=== PATIENT | male | born 1965 | race Caucasian/White ===

== ENCOUNTER → 2019-06-18 | Outpatient (CLI) | payer BC ==
[2019-06-18 09:03] LABS: HCT 47.3 % (39.0-53.0); HGB 15.9 gm/dL (13.0-17.5); MCH 30.9 pg (25.0-35.0); MCHC 33.6 g/dL (31.0-37.0); MCV 92.1 fL (80.0-100.0); Mean Platelet Volume 7.4; Platelet Count 258 k/uL (150-450); RBC 5.13 m/uL (4.30-5.90); RDW 12.6 % (11.5-15.5); WBC 9.5 k/uL (3.8-10.6)
[2019-06-18 09:12] LABS: Appearance,Urine Clear (Clear); Bilirubin,Urine Negative (Negative); Blood,Urine Negative (Negative); Color,Urine Light Yellow; Glucose,Urine (UA) Negative (Negative); Ketones,Urine Negative (Negative); Leukocyte Esterase,Urine Negative (Negative); Nitrite,Urine Negative (Negative); PH, Urine 6.5 (5.0-8.0); Protein,Urine Negative (Negative); Urobilinogen,Urine <2.0 mg/dL (<2.0)
[2019-06-18 09:32] LABS: ALT 46 U/L (4-49); AST 30 U/L (17-59); African American GFR (CKD) >90 (>60 ml/min/1.73 sqM); Albumin 4.4 g/dL (3.5-5.0); Alkaline Phosphatase 89 U/L (38-126); Anion Gap 10 mmol/L; Blood Urea Nitrogen 12 mg/dL (9-20); Calcium 9.8 mg/dL (8.4-10.2); Carbon Dioxide 30 mmol/L (22-30); Chloride 101 mmol/L (98-107); Glucose 101 mg/dL (74-99); Non-African American GFR(CKD) >90 (>60 ml/min/1.73 sqM); Potassium 4.3 mmol/L (3.5-5.1); Sodium 141 mmol/L (137-145); Total Bilirubin 1.1 mg/dL (0.2-1.3); Total Protein 7.5 g/dL (6.3-8.2)
[2019-06-18 09:33] LABS: Partial Thromboplastin Time 23.4 sec (22.0-30.0); Prothrombin Time 10.5 sec (9.0-12.0)
== END | disposition home or self-care (01) ==
LOC: LABPAT 08:19
PROVIDERS: ATTEND Orthopaedic Surgery
DX: Z01.810 Encounter for preprocedural cardiovascular examination (principal); Z01.812 Encounter for preprocedural laboratory examination; M17.12 Unilateral primary osteoarthritis, left knee
CPT/HCPCS: 36415; 80053; 81003; 85027; 85610; 85730; 87070; 93005

== ENCOUNTER 2019-06-23 11:03 | Inpatient (IN) | payer BC ==
[2019-06-15 16:10] VITALS: BMI 30.5
[~2019-06-23 11:03] MED LIST: ACETAMINOPHEN TAB 500 MG TAB PO ONE; DEXAMETHASONE SOD PHOSPHATE 10 MG/ML 1 ML VIAL IV ONE; GABAPENTIN 300 MG CAP PO ONE; HYDROmorphone 0.5 MG/0.5 ML SYRINGE IVP PRN; LIDOCAINE 1% 20 ML VIAL (10MG/ML) FOR IV START INTRADERMA PRN; MELOXICAM 7.5 MG TAB PO ONE; MIDAZOLAM 2 MG/2 ML VIAL IV PRN; ONDANSETRON 4 MG/2 ML VIAL IVP ONE; ROPIVACAINE 246.25 MG, EPINEPHrine 0.5 MG, KETOROLAC 30 MG, cloNIDine HCL/PF 80 MCG, WA... MISCELLANE ONE; SCOPOLAMINE 1.5MG/72HR PATCH TRANSDERM ONE; TRANEXAMIC ACID 1,000 MG in SODIUM CHLORIDE 0.9% 100 ML IVPB ONE
[2019-06-23] MEDS ORDERED: BISACODYL 10 MG SUPP RECTAL PRN (14:42)
[2019-06-23] MEDS ORDERED: HYDROmorphone 0.5 MG/0.5 ML SYRINGE IVP PRN ×2 (14:42)
[2019-06-23] MEDS ORDERED: HYDROmorphone 1 MG/ML 1 ML SYRINGE IVP PRN (14:42)
[2019-06-23] MEDS ORDERED: hydrOXYzine PAMOATE 25 MG CAP PO PRN (14:42)
[2019-06-23] MEDS ORDERED: NALOXONE 0.4 MG/ML 1 ML VIAL IV PRN (14:42)
[2019-06-23] MEDS ORDERED: ONDANSETRON 4 MG/2 ML VIAL IVP PRN (14:42)
[2019-06-23] MEDS ORDERED: HYDROcodone/APAP 5-325MG 1 EACH TAB PO PRN ×2 (14:42)
[2019-06-23] MEDS ORDERED: DIAZEPAM 5 MG TAB PO PRN (14:42)
[2019-06-23] MEDS ORDERED: MAGNESIUM HYDROXIDE 2,400 MG/10 ML CUP PO PRN (14:42)
[2019-06-23] MEDS ORDERED: NA PHOS,M-B/NA PHOS,DI-BA 133 ML ENEMA RECTAL PRN (14:42)
[2019-06-23] MEDS: LACTATED RINGERS 1,000 ML IV SCH (15:37)
[2019-06-23] MEDS ORDERED: fentaNYL (PF) 50 MCG/ML 2 ML AMP IVP ONE (16:09)
[2019-06-23] MEDS ORDERED: MIDAZOLAM 2 MG/2 ML VIAL IVP ONE (16:09)
[2019-06-23] MEDS ORDERED: SUCCINYLCHOLINE CHLORIDE 100 MG/5 ML SYR IV ONE (16:51)
[2019-06-23] MEDS ORDERED: fentaNYL (PF) 50 MCG/ML 2 ML AMP ONE (16:51)
[2019-06-23] MEDS ORDERED: LIDOCAINE 1% INJ 10MG/ML (20 ML MDV) ONE (16:51)
[2019-06-23] MEDS ORDERED: PROPOFOL 10 MG/ML 20 ML VIAL IV ONE (16:51)
[2019-06-23] MEDS ORDERED: ROCURONIUM BROMIDE 10 MG/ML 10 ML VIAL IV ONE (16:51)
[2019-06-23] MEDS ORDERED: SODIUM CHLORIDE 0.9% 100 ML BAG ONE (16:51)
[2019-06-23] MEDS ORDERED: TRANEXAMIC ACID 1,000 MG/10 ML VIAL ONE (16:51)
[2019-06-23] MEDS ORDERED: MIDAZOLAM 2 MG/2 ML VIAL ONE (16:51)
[2019-06-23] MEDS ORDERED: ceFAZolin 3,000 MG in SODIUM CHLORIDE 0.9% IRRIGATIO 3,000 ML IRRIGATION ONE (16:54)
[2019-06-23] MEDS ORDERED: LACTATED RINGERS 1,000 ML IV ONE (17:31)
--- NOTE | 2019-06-23 17:39 | P.ANPRN ---
Procedure Note - Anesthesia - Nerve Block Performed Left Adductor Canal Infusion Time Out Performed: Yes (1608) Date of Procedure: 06/23/19 Procedure Start Time: 16:08 Procedure Stop Time: 16:15 Location of Patient: PreOp Indication: Acute Post-Operative Pain, Requested by Surgeon Specifically requested for management of pain by DrDisha: Quinn Swartz Sedation Type: Sedate with meaningful contact maintained Preparation: Sterile Prep Position: Supine Catheter Depth at Skin (cm): 10 Catheter: Indwelling Needle Types: Pajunk Needle Gauge: 20 Ultrasound used to observe medication spread: Yes Injectate: 0.5% Ropivacaine (see comment for volume) (20 cc) Blood Aspirated: No Pain Paresthesia on Injection Noted: No Resistance on Injection: Normal Image Stored and Saved: Yes Events: Uneventful and Well Tolerated
[2019-06-23] MEDS ORDERED: ROPIVACAINE 0.2%-NS ON-Q PUMP 1,090 MG, EMPTY PAIN BALL 1 EACH MISCELLANE PRN (18:30)
--- NOTE | 2019-06-23 18:34 | P.OP ---
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 He's had a prior total knee arthroplasty is initial x-ray showed polyethylene wear. He was scheduled for revision surgery but returned to the office subsequently with increased pain. His x-rays demonstrated a fracture of the posterior condyle this femoral component. After discussing the surgical nonsurgical treatment options with him at length, I recommended a revision of his total knee arthroplasty informed consent was obtained. Operative Findings: The operative findings are consistent with a fracture to the posterior condyle the femoral component and polyethylene wear. Description of Procedure: Patient was seen in the preoperative area consent was reviewed and operative site was marked with a skin marker. An adductor canal pain catheter was placed by anesthesia in the preoperative area. Patient was then brought to the operating room and given preoperative antibiotics intravenously. A spinal anesthetic was administered by the anesthesia department. A tourniquet was placed on the upper thigh and the lower extremity was prepped and draped in usual sterile fashion. A gram of transexamic acid was given. A universal timeout was then performed which confirmed the patient's name, surgical site, ALLERGIES, and consent. The lower extremity was then exsanguinated and tourniquet was inflated to 250 mmHg. A standard and anterior midline approach to the knee was performed. The skin and subcutaneous tissue was dissected down to the patellar tendon. A medial parapatellar arthrotomy was then performed. The knee was then extended, the patellar was everted, and the knee was again flexed. The knee was then cultured 2. The prosthesis was then evaluated and the tibial component was found to be stable. The polyethylene component was found have significant wear laterally and there is also fracture of the posterior condyle of the femoral component. The polyethylene component was then removed, and attention was directed to the femoral component. Using a small oscillating saw, the cement implant interface was disrupted and the femoral was then removed without difficulty. Next, sequential reaming of the femoral canal was then performed by hand. The femur was then sized and the distal cutting block was then placed in the distal femur was then freshened with a cut. Next the 4-in-1 cutting block was then placed, and set for the appropriate rotation. Anterior posterior chamfer cuts were then performed as well as anterior posterior cuts. The trial femur was then placed with appropriate length stem. Next the box cutting guide was placed in the bone for the box was then reamed and removed. Femoral trial was then removed. Trials were then placed and the knee was able to fully extend and his flexion was stable to 120. Trials were then removed. The cut surfaces of bone were then irrigated with pulsatile lavage. The posterior structures were injected with the ropivacaine solution. The knee was also irrigated with Irrisept solution. The components were then opened, the cement was mixed, and the components were then cemented in place. The cement was allowed to harden with the knee in full extension. While the cement was hardening, the remaining soft tissues were then injected with a ropivacaine solution, which consisted of 246.25 mg of ropivacaine, 0.5 mg of epinephrine, 30 mg of Toradol, 80 g of clonidine, and 48.45 mL of sterile water, for a total of 100 mL of fluid injected. After the cemented hardened. The tourniquet was released, and hemostasis was obtained. A second gram of transexamic acid was given. The knee was again irrigated. The knee was again taken through range of motion and found to be stable throughout all range of motion of 0-130, and the patella tracked normally. The fascia was then closed with #2 strata fix suture. The subcutaneous tissue was closed with 3-0 Vicryl and 3-0 strata fix. Dermabond glue was used for the skin and placed with the knee in flexion. The patient was placed in a sterile silver dressing. Patient was then transferred to recovery room in stable condition. The periodontal assistant BIANKA Adams was required due the complexity surgery and the need for a skilled surgical technology instructor. She assisted in positioning, draping, retraction, and closure of the wound.
--- NOTE | 2019-06-23 19:08 | XR ---
EXAMINATION TYPE: XR knee limited LT DATE OF EXAM: 06/23/2019 COMPARISON: 05/05/2019 HISTORY: Postop TECHNIQUE: 2 views FINDINGS: There is left knee prosthesis. Components appear in anatomic position. There is revision of the prosthesis compared to last exam. IMPRESSION: Prosthesis revision. No complicating process seen.
[2019-06-23] MEDS ORDERED: NITROGLYCERIN SL TABS 0.4 MG TAB SUBLINGUAL ONE (19:15)
[2019-06-23] MEDS ORDERED: CITRIC ACID-SODIUM CITRATE 15 ML CUP PO ONE (19:26)
[2019-06-23] MEDS ORDERED: NITROGLYCERIN OINT 1 INCH/GM PACKET TOPICAL ONE (19:36)
--- NOTE | 2019-06-23 19:55 | P.PN ---
Progress Note - Text Progress Note Date: 06/23/19 (1941) Anesthesiology PACU update upon waking after surgery, patient had complaint of just left of sternum chest pain 5/10. Oxygen, pain meds, bicitra and SL nitro. Pain resolved with sublingual nitroglycerin. EKG unchanged from previous on 06/18/2019. Cardiology consulted and contacted. Spoke directly with Dr. Saúl Mcrae. Relayed patient history and current situation. Per conversation with Clementina. Pt is to go to [address] [place] [address], consult to Cardio (Clementina), ensure statin and metoprol ol and plavix is restarted. Trops ordered. Nitropaste 1" applied.
[2019-06-23 20:29] VITALS: RESP 18
[2019-06-23] MEDS ORDERED: ATORVASTATIN 80 MG TAB PO SCH (21:00)
[2019-06-23] MEDS ORDERED: SENNOSIDES-DOCUSATE SODIUM 1 EACH TAB PO SCH (21:00)
[2019-06-23] MEDS: ASPIRIN 81 MG PO SCH (21:01)
[2019-06-23] MEDS: CLOPIDOGREL 75 MG TAB PO SCH (21:02)
[2019-06-23] MEDS: SODIUM CHLORIDE 0.9% 1,000 ML IV SCH (22:30)
[2019-06-24] MEDS: LACTATED RINGERS 1,000 ML IV SCH (01:34)
[2019-06-24] MEDS: SODIUM CHLORIDE 0.9% 1,000 ML IV SCH (05:55)
[2019-06-24 06:11] LABS: Basophils % (A) 0 %; Eosinophils % (A) 0 %; HCT 43.5 % (39.0-53.0); HGB 14.1 gm/dL (13.0-17.5); Lymphocytes # (A) 0.6 k/uL (1.0-4.8); Lymphocytes % (A) 4 %; MCHC 32.4 g/dL (31.0-37.0); MCV 92.6 fL (80.0-100.0); Mean Platelet Volume 7.7; Monocytes # (A) 0.5 k/uL (0-1.0); Monocytes % (A) 3 %; Neutrophils # (A) 12.8 k/uL (1.3-7.7); Neutrophils % (A) 92 %; Platelet Count 197 k/uL (150-450); RDW 12.9 % (11.5-15.5); WBC 13.9 k/uL (3.8-10.6)
[2019-06-24] MEDS: CLOPIDOGREL 75 MG TAB PO SCH (08:15)
[2019-06-24] MEDS: ASPIRIN 81 MG PO SCH (08:15)
--- NOTE | 2019-06-24 08:57 | P.DS ---
Providers Date of admission: 06/23/19 14:38 Expected date of discharge: 06/24/19 Attending physician: Quinn Swartz Consults: 06/23/19 14:42 Consult Physician Routine Consulting Provider: Haris Pizano Reason/Comments: medical management Do you want consulting provider notified?: Yes 06/23/19 19:35 Consult Physician Stat Consulting Provider: Saúl Mcrae Consult Reason/Comments: Angina in PACU Do you want consulting provider notified?: Already Contacted Primary care physician: Haris Pizano - Discharge Diagnosis(es) (1) Failed total knee, left Current Visit: Yes Status: Acute (2) Status post revision of total replacement of left knee Current Visit: Yes Status: Acute Hospital Course: This is a 53-year-old male who was last seen with complaint of continued left knee pain. The patient has a known history of failed total knee components of the left knee and presents to discuss surgical options. After discussion and consideration the patient elects to proceed with revision total left knee arthroplasty. The patient is seen preoperatively by Dr. Pizano and cleared for surgery. The patient is admitted to [facility] for revision total left knee arthroplasty. The procedure is performed without complication. He developed some chest pain postoperatively and was transferred to the selective care unit for observation and evaluation. He is doing well on postop day #1. Vital signs are stable at discharge. Labs are stable at discharge. the patient is ambulating well with walker with minimal assistance. The patient is discharged to home on postop day #1 pending medical and cardiac clearance. Please see orders and refer to the [facility] rec for accurate list of medications. Plan - Discharge Summary Discharge Rx Participant: No New Discharge Prescriptions: New HYDROcodone/APAP 7.5-325MG [[place] 7.5-325] 1 - 2 tab PO Q4-6H PRN #50 tab PRN Reason: Pain Sennosides-Docusate Sodium [Senokot-S] 1 tab PO BID #60 tablet No Action amLODIPine BESYLATE/BENAZEPRIL [Lotrel 10-40 MG] 1 cap PO DAILY Metoprolol Succinate [[place] Sprinkle] 25 mg PO DAILY Clopidogrel [Plavix] 75 mg PO DAILY Omeprazole [PriLOSEC] 20 mg PO AC-BRKFST Atorvastatin Calcium [Lipitor] 80 mg PO HS Aspirin [Adult Low Dose Aspirin EC] 81 mg PO DAILY Discharge Medication List Aspirin [Adult Low Dose Aspirin EC] 81 mg PO DAILY 06/15/19 [History] Atorvastatin Calcium [Lipitor] 80 mg PO HS 06/15/19 [History] Clopidogrel [Plavix] 75 mg PO DAILY 06/15/19 [History] Metoprolol Succinate [[place] Sprinkle] 25 mg PO DAILY 06/15/19 [History] Omeprazole [PriLOSEC] 20 mg PO AC-BRKFST 06/15/19 [History] amLODIPine BESYLATE/BENAZEPRIL [Lotrel 10-40 MG] 1 cap PO DAILY 06/15/19 [History] HYDROcodone/APAP 7.5-325MG [[place] 7.5-325] 1 - 2 tab PO Q4-6H PRN #50 tab 06/24/19 [Rx] Sennosides-Docusate Sodium [Senokot-S] 1 tab PO BID #60 tablet 06/24/19 [Rx] Follow up Appointment(s)/Referral(s): Quinn Swartz DO [Doctor of Osteopathic Medicine] - 2 Weeks Activity/Diet/Wound Care/Special Instructions: Weightbearing as tolerated with a walker. CPM 5-6h daily. Leave dressing intact. May be removed by home care nurse or by patient in 10 days. May shower with dressing on. Recommend use of compression stockings daily for at least 2 weeks during the day to help prevent swelling and blood clots. May remove at night before sleeping. Please follow up with [facility] and call with any questions or co nverns, . May resume Plavix. Discharge Disposition: HOME WITH HOME HEALTH SERVICES
[2019-06-24] MEDS ORDERED: CLOPIDOGREL 75 MG TAB PO SCH (09:00)
[2019-06-24] MEDS ORDERED: METOPROLOL SUCCINATE (ER) 25 MG TAB.ER.24H PO SCH (09:00)
--- NOTE | 2019-06-24 09:52 | P.CRDCN ---
History of Present Illness Consult date: 06/24/19 Requesting physician: Quinn Swartz Consult reason: chest pain Chief complaint: Chest pain History of present illness: Physical pleasant 53-year-old gentleman with history of myocardial infarction in January of last year at which time he underwent stenting of the distal RCA, history of hypertension, hyperlipidemia, patient underwent revision of left total knee arthroplasty yesterday, while in the recovery room he was experiencing some midsternal chest discomfort and for this reason he was admitted to the cardiac unit and a cardiology consultation was requested. Patient states the discomfort was right in the mid chest area, nonradiating, he denies any associated shortness of breath or diaphoresis. An EKG was performed at that time which showed a normal sinus rhythm with a right bundle branch block pattern, nonspecific ST-T wave changes. Blood pressure 116/68 with a heart rate of 90, 94% on 4 L of oxygen, he is afebrile. Troponin times one was negative. White blood cell count 13.9, hemoglobin 14.1, platelet count 197. At the time of my examination this morning, patient is currently chest pain-free. The patient had been off of his Plavix for 5 days prior to surgery, he continued aspirin, the Plavix has since been resumed, and he is also on 25 mg of metoprolol daily. Past Medical History Past Medical History: GERD/Reflux, Hyperlipidemia, Hypertension, Myocardial Infarction (ME), Osteoarthritis (OA) Last Myocardial Infarction Date:: 01/27/19 History of Any Multi-Drug Resistant Organisms: None Reported Past Surgical History: Cholecystectomy, Heart Catheterization With Stent, Joint Replacement Additional Past Surgical History / Comment(s): yadira knee replacement Past Anesthesia/Blood Transfusion Reactions: Postoperative Nausea & Vomiting (PONV) Date of Last Stent Placement:: 01/27/19 Smoking Status: Never smoker Past Alcohol Use History: Rare Additional Past Alcohol Use History / Comment(s): hx chew tobacco last used 07/22 Past Drug Use History: None Reported - Past Family History Mother Family Medical History: Cancer Father Family Medical History: Cancer Additional Family Medical History / Comment(s): stomach cancer Medications and Allergies Home Medications Medication Instructions Recorded Confirmed Type Aspirin [Adult Low Dose Aspirin EC] 81 mg PO DAILY 06/15/19 06/23/19 History Atorvastatin Calcium [Lipitor] 80 mg PO HS 06/15/19 06/23/19 History Clopidogrel [Plavix] 75 mg PO DAILY 06/15/19 06/23/19 History Metoprolol Succinate [[place] 25 mg PO DAILY 06/15/19 06/23/19 History Sprinkle] Omeprazole [PriLOSEC] 20 mg PO AC-BRKFST 06/15/19 06/23/19 History amLODIPine BESYLATE/BENAZEPRIL 1 cap PO DAILY 06/15/19 06/23/19 History [Lotrel 10-40 MG] HYDROcodone/APAP 7.5-325MG [[place] 1 - 2 tab PO Q4-6H PRN #50 tab 06/24/19 Rx 7.5-325] Sennosides-Docusate Sodium 1 tab PO BID #60 tablet 06/24/19 Rx [Senokot-S] Allergies Allergy/AdvReac Type Severity Reaction Status Date / Time No Known Allergies Allergy Verified 06/23/19 15:11 Physical Exam Vitals: Vital Signs Temp Pulse Resp BP Pulse Ox 06/24/19 08:00 97.6 F 90 18 116/69 94 L 06/24/19 05:56 93 L 06/24/19 04:50 111/72 06/24/19 04:00 97.8 F 78 18 103/71 92 L 06/24/19 02:40 88 18 06/24/19 01:11 88 18 98/52 92 L 06/24/19 00:00 85 18 95/55 92 L 06/23/19 23:42 98/58 06/23/19 21:42 102/59 06/23/19 20:22 98 F 81 18 101/58 90 L 06/23/19 19:46 83 14 95/57 94 L 06/23/19 19:32 84 16 98/56 93 L 06/23/19 19:17 85 16 104/68 93 L 06/23/19 19:04 87 16 106/66 93 L 06/23/19 18:45 83 16 107/67 97 06/23/19 18:37 97.7 F 86 18 103/63 95 06/23/19 16:15 71 18 126/84 96 06/23/19 15:23 98.2 F 66 18 127/86 99 Intake and Output 06/23/19 06/24/19 06/24/19 22:59 06:59 14:59 Intake Total 1551 480 Output Total 25 Balance 1526 480 Intake: IV 1551 Oral 480 Output: Estimated Blood Loss 25 Other: Voiding Method Urinal # Voids 1 Weight 97.7 kg 98.4 kg PHYSICAL EXAMINATION: GENERAL: 53-year-old gentleman in no acute distress at the time of my examination HEENT: Head is atraumatic, normocephalic. Pupils equal, round. Sclera anicteric. Conjunctiva are clear. Mucous membranes of the mouth are moist. Neck is supple. There is no elevated jugular venous pressure. No carotid b ruit is heard. HEART EXAMINATION: Heart S1, S2 normal. No murmur or gallop heard. CHEST EXAMINATION: Lungs are clear to auscultation and precussion. No chest wall tenderness is noted on palpation or with deep breathing. ABDOMEN: Soft, nontender. Bowel sounds are heard. No organomegaly noted. EXTREMITIES: 2+ peripheral pulses with no evidence of peripheral edema and no calf tenderness noted. NEUROLOGIC patient is awake, alert and oriented 3 . . Results 06/24/19 05:21 Cardiac Enzymes 06/23/19 Range/Units 20:30 Troponin I <0.012 (0.000-0.034) ng/mL CBC 06/24/19 Range/Units 05:21 WBC 13.9 H (3.8-10.6) k/uL RBC 4.70 (4.30-5.90) m/uL Hgb 14.1 (13.0-17.5) gm/dL Hct 43.5 (39.0-53.0) % Plt Count 197 (150-450) k/uL Current Medications Generic Name Dose Route Start Last Admin Trade Name Freq PRN Reason Stop Dose Admin Hydrocodone Bitart/Acetaminophen 1 each 06/23/19 14:42 [place] 5-325 PO Q6HR PRN Pain Scale 1 to 5 Hydrocodone Bitart/Acetaminophen 2 each 06/23/19 14:42 [place] 5-325 PO Q6HR PRN Pain Scale 6 to 10 Aspirin 81 mg 06/23/19 21:00 06/24/19 08:15 Aspirin PO 81 mg BID CHERELLE Administration Atorvastatin Calcium 80 mg 06/23/19 21:00 06/23/19 21:01 Lipitor PO 80 mg HS CHERELLE Administration Bisacodyl 10 mg 06/23/19 14:42 Dulcolax RECTAL DAILY PRN Constipation Clopidogrel Bisulfate 75 mg 06/23/19 20:15 06/24/19 08:15 Plavix PO 75 mg DAILY CHERELLE Administration Ropivacaine 1,090 mg/ Bandage/ 0 mg 06/23/19 18:30 06/23/19 18:45 Support Products 1 each MISCELLANE 1,090 mg Q2H PRN Administration Breakthrough Pain Diazepam 2.5 mg 06/23/19 14:42 Valium PO Q8HR PRN Mild Spasms Hydromorphone HCl 0.25 mg 06/23/19 14:42 Dilaudid IVP Q3HR PRN Pain Scale 1 to 3 Hydromorphone HCl 0.5 mg 06/23/19 14:42 Dilaudid IVP Q3HR PRN Pain Scale 4 to 6 Hydromorphone HCl 1 mg 06/23/19 14:42 06/23/19 23:14 Dilaudid IVP 1 mg Q3HR PRN Administration Pain Scale 7 to 10 Hydroxyzine Pamoate 25 mg 06/23/19 14:42 Vistaril PO Q4HR PRN Nausea, Anxiety, Pain Control Lactated Ringer's 1,000 mls @ 20 mls/hr 06/23/19 05:37 06/24/19 01:34 Lactated Ringers IV Not Given .Q24H CHERELLE Sodium Chloride 1,000 mls @ 70 mls/hr 06/23/19 14:45 06/24/19 05:55 Saline 0.9% IV Not Given .[id number] CHERELLE Lidocaine HCl 0.1 ml 06/23/19 05:37 06/23/19 15:38 .Xylocaine 1% Inj (10mg/Ml) For Iv Start INTRADERMA 0.1 ml PER PROTOCOL PRN Administration IV Start Magnesium Hydroxide 2,400 mg 06/23/19 14:42 Milk Of Magnesia PO DAILY PRN Constipation Metoprolol Succinate 25 mg 06/24/19 09:00 06/24/19 08:15 Toprol Xl PO 25 mg DAILY CHERELLE Administration Naloxone HCl 0.2 mg 06/23/19 14:42 Narcan IV Q2M PRN Opioid Reversal Ondansetron HCl 4 mg 06/23/19 14:42 06/23/19 19:10 Zofran IVP 4 mg Q8HR PRN Administration Nausea And Vomiting Senna/Docusate Sodium 2 each 06/23/19 21:00 06/23/19 21:01 Senokot-S PO 2 each HS CHERELLE Administration Sodium Biphosphate/Sodium Phosphate 133 ml 06/23/19 14:42 Fleet Adult RECTAL DAILY PRN Constipation Intake and Output 06/23/19 06/24/19 06/24/19 22:59 06:59 14:59 Intake Total 1551 480 Output Total 25 Balance 1526 480 Intake: IV 1551 Oral 480 Output: Estimated Blood Loss 25 Other: Voiding Method Urinal # Voids 1 Weight 97.7 kg 98.4 kg 06/24/19 05:21 EKG Interpretations (text) EKG shows normal sinus rhythm with a right bundle branch block pattern and nonspecific ST-T wave changes. Assessment and Plan Plan: Assessment and plan #1 status post revision left total knee arthroplasty #2 history of myocardial infarction in January of last year at which time patient underwent stenting of the distal RCA by Dr. Marquis at [facility] #3 hypertension #4 hyperlipidemia Plan Initial troponin was negative, we will obtain a subsequent troponin, obtain an echocardiogram with Doppler study. Repeat EKG this morning. Patient has been resumed on his Plavix, aspirin, Lipitor, and Metoprolol 25 mg daily. Further recommendations to follow. DNP note has been reviewed, I agree with a documented findings and plan of care. Patient was seen and examined.
[2019-06-24] MEDS ORDERED: METOPROLOL SUCCINATE 25 MG PO SCH (10:30)
[2019-06-24] MEDS ORDERED: PANTOPRAZOLE 40 MG TABLET PO SCH (10:30)
[2019-06-24] MEDS ORDERED: CLOPIDOGREL 75 MG TAB PO STA (10:54)
--- NOTE | 2019-06-24 11:24 | P.CONS ---
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 Plavix on hold for 5 days prior to surgery, but continued aspirin. Postop, in the recovery room, experienced nonradiating midsternal chest pain with no palpitations, shortness of breath or diaphoresis, accompanied by hypoxia, with O2 sats in the low 80s on room air. EKG performed, currently not available. Troponins negative 2. Systolic blood pressure 110's, HR 90s. Afebrile, WBC 13.9, hemoglobin 14.1, platelets 197. Currently sinus rhythm, maintaining O2 sats in the 90s on 4 L nasal cannula, denies chest pain, palpitations or shortness of breath. Denies lightheadedness, dizziness or focal deficits. Review of Systems Constitutional: Denied any fatigue denied any fever. Cardio vascular: denied any chest pain, palpitations Gastrointestinal denied any nausea vomiting Pulmonary: Denied any shortness of breath cough Neurologic denied any new focal deficits ROS Statement: Those systems with pertinent positive or pertinent negative responses have been documented in the HPI. ROS Other: All systems not noted in ROS Statement are negative. Past Medical History Past Medical History: GERD/Reflux, Hyperlipidemia, Hypertension, Myocardial Infarction ([place]), Osteoarthritis (OA) Last Myocardial Infarction Date:: 01/27/19 History of Any Multi-Drug Resistant Organisms: None Reported Past Surgical History: Cholecystectomy, Heart Catheterization With Stent, Joint Replacement Additional Past Surgical History / Comment(s): yadira knee replacement Past Anesthesia/Blood Transfusion Reactions: Postoperative Nausea & Vomiting (PONV) Date of Last Stent Placement:: 01/27/19 Smoking Status: Never smoker Past Alcohol Use History: Rare Additional Past Alcohol Use History / Comment(s): hx chew tobacco last used 07/22 Past Drug Use History: None Reported - Past Family History Mother Family Medical History: Cancer Father Family Medical History: Cancer Additional Family Medical History / Comment(s): stomach cancer Medications and Allergies Home Medications Medication Instructions Recorded Confirmed Type Aspirin [Adult Low Dose Aspirin EC] 81 mg PO DAILY 06/15/19 06/23/19 History Atorvastatin Calcium [Lipitor] 80 mg PO HS 06/15/19 06/23/19 History Clopidogrel [Plavix] 75 mg PO DAILY 06/15/19 06/23/19 History Metoprolol Succinate [Kapspargo 25 mg PO DAILY 06/15/19 06/23/19 History Sprinkle] Omeprazole [PriLOSEC] 20 mg PO AC-BRKFST 06/15/19 06/23/19 History amLODIPine BESYLATE/BENAZEPRIL 1 cap PO DAILY 06/15/19 06/23/19 History [Lotrel 10-40 MG] HYDROcodone/APAP 7.5-325MG [[place] 1 - 2 tab PO Q4-6H PRN #50 tab 06/24/19 Rx 7.5-325] Sennosides-Docusate Sodium 1 tab PO BID #60 tablet 06/24/19 Rx [Senokot-S] Allergies Allergy/AdvReac Type Severity Reaction Status Date / Time No Known Allergies Allergy Verified 06/23/19 15:11 Physical Exam Vitals: Vital Signs Temp Pulse Resp BP Pulse Ox 06/24/19 08:00 97.6 F 90 18 116/69 94 L 06/24/19 05:56 93 L 06/24/19 04:50 111/72 06/24/19 04:00 97.8 F 78 18 103/71 92 L 06/24/19 02:40 88 18 06/24/19 01:11 88 18 98/52 92 L 06/24/19 00:00 85 18 95/55 92 L 06/23/19 23:42 98/58 06/23/19 21:42 102/59 06/23/19 20:22 98 F 81 18 101/58 90 L 06/23/19 19:46 83 14 95/57 94 L 06/23/19 19:32 84 16 98/56 93 L 06/23/19 19:17 85 16 104/68 93 L 06/23/19 19:04 87 16 106/66 93 L 06/23/19 18:45 83 16 107/67 97 06/23/19 18:37 97.7 F 86 18 103/63 95 01/21/20 16:15 71 18 126/84 96 06/23/19 15:23 98.2 F 66 18 127/86 99 Intake and Output 06/23/19 06/24/19 06/24/19 22:59 06:59 14:59 Intake Total 1551 480 Output Total 25 Balance 1526 480 Intake: IV 1551 Oral 480 Output: Estimated Blood Loss 25 Other: Voiding Method Urinal Toilet Urinal # Voids 1 1 Weight 97.7 kg 98.4 kg PHYSICAL EXAM: VITAL SIGNS: As above GENERAL: Sitting up in bed, no acute distress HEENT: Conjunctivae normal. eyes normal. Oral mucosa moist NECK: No JVD. No thyroid enlargement. No LNs CARDIOVASCULAR: S1, S2 regular.. No murmur. RESPIRATION: Breath sounds diminished in the bases. No rhonchi or crackles. No bronchial breathing. ABDOMEN: Soft, nontender . No guarding. no masses palpable. No ascites, No hepatosplenomegaly.Bowel sounds heard. LEGS: Left knee surgical site dressing with minimal seepage/shadowing, minimal edema, pain pump present. Extremity warm, positive DP pulse PSYCHIATRY: Alert and oriented X3, mood and affect normal. NERVOUS SYSTEM: Cranial N 2-12 grossly normal. Moves all 4 limbs. Diffuse weakness No focal deficits. Strength and sensation grossly intact.. Skin: no rash Lymphatic system. No LN neck axilla. Results CBC & Chem 7: 06/24/19 05:21 Labs: Abnormal Lab Results - Last 24 Hours (Table) 06/24/19 Range/Units 05:21 WBC 13.9 H (3.8-10.6) k/uL Neutrophils # 12.8 H (1.3-7.7) k/uL Lymphocytes # 0.6 L (1.0-4.8) k/uL Microbiology - Last 24 Hours (Table) 06/23/19 18:00 Anaerobic Culture - Preliminary Knee - Left 06/23/19 18:00 Wound Culture - Preliminary Knee - Left 06/23/19 18:00 Wound Culture - Preliminary Knee - Left 06/23/19 18:00 Anaerobic Culture - Preliminary Knee - Left Assessment and Plan Assessment: status post revision left total knee arthroplasty secondary to failed left total knee arthroplasty for fracture of the femoral component Postoperative chest pain, echo pending. Cardiology following. Acute hypoxic respiratory failure, status post simple mask, suspect secondary to the above, anesthesia, chest x-ray pending [place] with RCA stent January 2019 Hypertension Hyperlipidemia Gastroesophageal reflux disease Osteoarthritis Prior nicotine dependence PONV Plan: Continue on current medication regime ,monitoring and symptomatic treatment. Weaning of oxygen in progress. Chest x-ray ordered-results pending. Aggressive pulmonary toileting with incentive spirometer reinforced. Home medications of beta juany, Plavix, aspirin, PPI resumed. Echo pending. Chest x-ray ordered. PT as per orthopedic surgery. The impression and plan of care has been dictated as directed. : I performed a history and examination of this patient, discussed the same with the dictator. I agree with the dictator's note ,documented as a scribe. Any additional findings or plans will be noted.
[2019-06-24 11:35] LABS: Cholesterol 117 mg/dL (<200); HDL Cholesterol 35 mg/dL (40-60); LDL Cholesterol,Calculated 73 mg/dL (0-99); Triglycerides 45 mg/dL (<150)
[2019-06-24 11:49] VITALS: BP 116/74; PULSE 83; TEMP 97.4
--- NOTE | 2019-06-24 12:58 | XR ---
EXAMINATION TYPE: XR chest 1V portable DATE OF EXAM: 06/24/2019 COMPARISON: NONE HISTORY: Hypoxic respiratory failure TECHNIQUE: Single frontal view of the chest is obtained. FINDINGS: There is no pleural effusion or pneumothorax seen. The cardiac silhouette size is within normal limits. The osseous structures are intact. There are overlying cardiac leads. Some possible subsegmental basilar atelectatic change or scarring present at the left costophrenic angle. IMPRESSION: Possible minimal scarring or basilar atelectasis, follow-up as indicated.
--- NOTE | 2019-06-24 13:13 | P.PN ---
Progress Note - Text 06/24 646am 53-year-old male status post total knee replacement. Patient has an On-Q pump for postop pain control with the solution running at 8 mL an hour with a VAS of 2 plan to continue On-Q pump infusion
[2019-06-24 16:47] LABS: Hemoglobin A1C 6.4 % (4.0-6.0)
[2019-06-24] MEDS ORDERED: ATORVASTATIN 80 MG TAB PO SCH (21:00)
--- NOTE | 2019-06-25 12:00 | ECHOF ---
Referral Reason:chest pain MEASUREMENTS -------- HEIGHT: 182.9 cm WEIGHT: 98.0 kg BP: 116/69 RVIDd: 3.1 cm (< 3.3) IVSd: 1.1 cm (0.6 - 1.1) LVIDd: 4.9 cm (3.9 - 5.3) LVPWd: 1.2 cm (0.6 - 1.1) IVSs: 1.7 cm LVIDs: 3.1 cm LVPWs: 1.4 cm LA Diam: 3.6 cm (2.7 - 3.8) LAESV Index (A-L): 23.21 ml/m Ao Diam: 3.2 cm (2.0 - 3.7) AV Cusp: 2.3 cm (1.5 - 2.6) MV EXCURSION: 16.269 mm (> 18.000) MV EF SLOPE: 122 mm/s (70 - 150) EPSS: 0.5 cm MV E Cj: 0.78 m/s MV DecT: 132 ms MV A Cj: 0.88 m/s MV E/A Ratio: 0.88 TAPSE: 25.16 mm FINDINGS -------- Sinus rhythm. This was a technically good study. The left ventricular size is normal. There is borderline concentric left ventricular hypertrophy. Overall left ventricular systolic function is normal with, an EF between 60 - 65 %. The right ventricle is normal in size. Normal LA size by volume 22+/-6 ml/m2. The right atrium is normal in size. Interatrial and interventricular septum intact. The aortic valve is trileaflet and appears structurally normal. The mitral valve is normal. The tricuspid valve appears structurally normal. There is no pulmonic regurgitation present. The aortic root size is normal. Normal inferior vena cava with normal inspiratory collapse consistent with estimated right atrial pre ssure of 5 mmHg. There is no pericardial effusion. CONCLUSIONS -------- 1. Sinus rhythm. 2. This was a technically good study. 3. The left ventricular size is normal. 4. There is borderline concentric left ventricular hypertrophy. 5. Overall left ventricular systolic function is normal with, an EF between 60 - 65 %. 6. The right ventricle is normal in size. 7. Normal LA size by volume 22+/-6 ml/m2. 8. The right atrium is normal in size. 9. Interatrial and interventricular septum intact. 10. The aortic valve is trileaflet and appears structurally normal. 11. The mitral valve is normal. 12. The tricuspid valve appears structurally normal. 13. There is no pulmonic regurgitation present. 14. The aortic root size is normal. 15. Normal inferior vena cava with normal inspiratory collapse consistent with estimated right atrial pressure of 5 mmHg. 16. There is no pericardial effusion. BANKING ASSISTANT: Rocio Hooper RDCS
--- NOTE | 2019-06-29 14:36 | CDI ---
Documentation Clarification Form Date: 06/29/19 From: Tamika Jon CCS Phone: If you have a question about this query, please contact Elaina Page, Ice Carver at [phone] between 8am and 5pm. Admit Date: 06/23/19 Discharge Date: 06/24/19 Patient Name: Greg Freire Visit Number: [id number] ATTENTION: The Clinical Documentation Specialists (CDI) and [facility] Coding Staff appreciate your assistance in clarifying documentation. Please respond to the clarification below the line at the bottom and electronically sign. The CDI & [facility] Coding staff will review the response and follow-up if needed. Please note: Queries are made part of the Legal Health Record. If you have any questions, please contact the author of this message via ITS. Dear Dr. Swartz, The diagnosis acute hypoxic respiratory failure suspect due to anesthesia was documented in the 06/24 Consult, but is not noted in subsequent documentation. History/Risk Factors: RBB, HX smoking, Hx [place], HX PTCA w/stent, HTN Clinical Indicators: breath sounds diminished in the bases Vitals: BP 98/52, RR 18, OR 88, O2 Sat 92 on 2l of oxygen Treatment: Aggressive pulmonary toileting w/ incentive spirometer, Oxygen nasal cannula 2lpm Please clarify if the acute hypoxic respiratory was Due to anesthesia Complication of surgery Treated and resolved this admission Ruled out Other, please specify Clinically unable to determine Clinically unable to determine MTDD
== END 2019-06-24 13:55 | disposition home health service (06) | DRG 466 ==
LOC: 2ORMAIN 14:38 → EDSTATUS 16:50 → 4SSUR 18:41 → 3SCARD 19:41
PROVIDERS: ADMIT Orthopaedic Surgery; ATTEND Orthopaedic Surgery
PROC: 3E0T3BZ Introduction of Anesthetic Agent into Peripheral Nerves and Plexi, Percutaneous Approach (ICD-10-PCS; 2019-06-23)
PROC: 0SRU0J9 Replacement of Left Knee Joint, Femoral Surface with Synthetic Substitute, Cemented, Open Approach (ICD-10-PCS; principal; 2019-06-23 16:50)
PROC: 0SUW09Z Supplement Left Knee Joint, Tibial Surface with Liner, Open Approach (ICD-10-PCS; principal; 2019-06-23 16:50)
PROC: 0SPU0JZ Removal of Synthetic Substitute from Left Knee Joint, Femoral Surface, Open Approach (ICD-10-PCS; principal; 2019-06-23 16:50)
PROC: 0SPD09Z Removal of Liner from Left Knee Joint, Open Approach (ICD-10-PCS; principal; 2019-06-23 16:50)
DX: T84.013A Broken internal left knee prosthesis, initial encounter (principal); J96.01 Acute respiratory failure with hypoxia; T84.093A Other mechanical complication of internal left knee prosthesis, initial encounter; I10 Essential (primary) hypertension; E78.5 Hyperlipidemia, unspecified; I45.10 Unspecified right bundle-branch block; K21.9 Gastro-esophageal reflux disease without esophagitis; M17.12 Unilateral primary osteoarthritis, left knee; R07.89 Other chest pain; R11.2 Nausea with vomiting, unspecified; T88.59XA Other complications of anesthesia, initial encounter; I25.2 Old myocardial infarction; Y79.2 Prosthetic and other implants, materials and accessory orthopedic devices associated with adverse incidents; Z79.82 Long term (current) use of aspirin; Z79.899 Other long term (current) drug therapy; Z79.02 Long term (current) use of antithrombotics/antiplatelets; Z95.5 Presence of coronary angioplasty implant and graft; Z90.49 Acquired absence of other specified parts of digestive tract; Z96.653 Presence of artificial knee joint, bilateral; Z87.891 Personal history of nicotine dependence; Z80.0 Family history of malignant neoplasm of digestive organs
CPT/HCPCS: 64448; 71045; 76942; 80061; 83036; 84484; 85025; 87070; 87075; 87205; 93005; 93306

== ENCOUNTER 2019-06-25 22:06 | Emergency (ER) | payer BC ==
--- NOTE | 2019-06-25 23:25 | ED ---
Recheck HPI - General Chief Complaint: Skin/Abscess/Foreign Body Stated Complaint: post knee surgery-open incision Time Seen by Provider: 06/25/19 22:35 Source: patient, RN notes reviewed, old records reviewed Mode of arrival: wheelchair Limitations: no limitations - History of Present Illness Initial Comments: This is a 33-year-old male here for evaluation of bleeding postop incision. Left knee pain from the knee revision, patient bent down today to pick something up and noticed some significant bleeding in his bandage of his left knee patient presents to ER with for evaluation of that knee. No significant pain no feelings of lightheadedness dizziness or weakness. Patient is on Plavix but no other blood thinners MD Complaint: wound re-check -: hour(s) Returns Today for: wound recheck Symptoms Since Prior Visit: no new symptoms (Patient did have bleeding was seems resolved) Associated Symptoms: none Treatments Prior to Arrival: dressings - Related Data Home Medications Medication Instructions Recorded Confirmed Aspirin [Adult Low Dose Aspirin EC] 81 mg PO DAILY 06/15/19 06/23/19 Atorvastatin Calcium [Lipitor] 80 mg PO HS 06/15/19 06/23/19 Clopidogrel [Plavix] 75 mg PO DAILY 06/15/19 06/23/19 Metoprolol Succinate [Kapspargo 25 mg PO DAILY 06/15/19 06/23/19 Sprinkle] Omeprazole [PriLOSEC] 20 mg PO AC-BRKFST 06/15/19 06/23/19 amLODIPine BESYLATE/BENAZEPRIL 1 cap PO DAILY 06/15/19 06/23/19 [Lotrel 10-40 MG] Previous Rx's Medication Instructions Recorded HYDROcodone/APAP 7.5-325MG [[place] 1 - 2 tab PO Q4-6H PRN #50 tab 06/24/19 7.5-325] Sennosides-Docusate Sodium 1 tab PO BID #60 tablet 06/24/19 [Senokot-S] Allergies Allergy/AdvReac Type Severity Reaction Status Date / Time No Known Allergies Allergy Verified 06/25/19 22:16 Review of Systems ROS Statement: Those systems with pertinent positive or pertinent negative responses have been documented in the HPI. ROS Other: All systems not noted in ROS Statement are negative. Past Medical History Past Medical History: GERD/Reflux, Hyperlipidemia, Hypertension, Myocardial Infarction ([place]), Osteoarthritis (OA) Last Myocardial Infarction Date:: 01/27/19 History of Any Multi-Drug Resistant Organisms: None Reported Past Surgical History: Cholecystectomy, Heart Catheterization With Stent, Joint Replacement Additional Past Surgical History / Comment(s): yadira knee replacement Past Anesthesia/Blood Transfusion Reactions: Postoperative Nausea & Vomiting (PONV) Date of Last Stent Placement:: 01/27/19 Past Psychological History: No Psychological Hx Reported Smoking Status: Never smoker Past Alcohol Use History: Rare Past Drug Use History: None Reported - Past Family History Mother Family Medical History: Cancer Father Family Medical History: Cancer Additional Family Medical History / Comment(s): stomach cancer General Exam - General Exam Comments Initial Comments: The patient is currently clean dry and intact with no active bleeding or obvious hematoma, no dehiscence Limitations: no limitations General appearance: alert, in no apparent distress Head exam: Present: atraumatic, normocephalic, normal inspection Eye exam: Present: normal appearance, PERRL, EOMI. Absent: scleral icterus, conjunctival injection, periorbital swelling ENT exam: Present: normal exam, mucous membranes moist Neck exam: Present: normal inspection. Absent: tenderness, meningismus, lymphadenopathy Respiratory exam: Present: normal lung sounds bilaterally. Absent: respiratory distress, wheezes, rales, rhonchi, stridor Cardiovascular Exam: Present: regular rate, normal rhythm, normal heart sounds. Absent: systolic murmur, diastolic murmur, rubs, gallop, clicks GI/Abdominal exam: Present: soft, normal bowel sounds. Absent: distended, tenderness, guarding, rebound, rigid Extremities exam: Present: normal inspection, full ROM, normal capillary refill. Absent: tenderness, pedal edema, joint swelling, calf tenderness Back exam: Present: normal inspection Neurological exam: Present: alert, oriented X3, CN II-XII intact Psychiatric exam: Present: normal affect, normal mood Skin exam: Present: warm, dry, intact, normal color. Absent: rash Course Vital Signs 06/25/19 06/25/19 06/26/19 22:13 22:31 00:15 Temperature 98.1 F 98.5 F 97.8 F Pulse Rate 94 81 79 Respiratory 18 17 19 Rate Blood Pressure 142/97 138/89 138/67 O2 Sat by Pulse 97 97 97 Oximetry - Reevaluation(s) Reevaluation #1: Medical records reviewed Patient's bandages redressed here in the ER to continue follow-up with orthopedic surgery as previously directed Medical Decision Making - Medical Decision Making 53 male here for evaluation of recheck when the wound evaluation of bleeding after postop knee replacement. Bleeding seems. Currently wound and bandage are changed, incision is clean dry and intact with no dehiscence. Disposition Clinical Impression: Encounter for wound re-check, Status post revision of total replacement of left knee Disposition: HOME SELF-CARE Condition: Good Instructions (If sedation given, give patient instructions): Acute Wound Care (ED) Is patient prescribed a controlled substance at d/c from ED?: No Referrals: Haris Pizano DO [Primary Care Provider] - 1-2 days
[2019-06-25] MEDS ORDERED: HYDROcodone/APAP 5-325MG 1 EACH TAB PO STA (23:30)
[2019-06-26 00:17] VITALS: BP 138/67; PULSE 79; RESP 19; TEMP 97.8
== END 2019-06-26 00:17 | disposition home or self-care (01) ==
LOC: EC 22:06
DX: Z48.01 Encounter for change or removal of surgical wound dressing (principal); I10 Essential (primary) hypertension; E78.5 Hyperlipidemia, unspecified; K21.9 Gastro-esophageal reflux disease without esophagitis; I25.2 Old myocardial infarction; M19.90 Unspecified osteoarthritis, unspecified site; Z79.82 Long term (current) use of aspirin; Z79.02 Long term (current) use of antithrombotics/antiplatelets; Z79.899 Other long term (current) drug therapy; Z96.653 Presence of artificial knee joint, bilateral; Z95.5 Presence of coronary angioplasty implant and graft
CPT/HCPCS: 99283

== ENCOUNTER → 2020-01-25 | Outpatient (CLI) | payer BC ==
--- NOTE | 2020-01-25 17:51 | US ---
EXAMINATION TYPE: US venous doppler duplex LE RT DATE OF EXAM: 01/25/2020 1:56 PM COMPARISON: NONE CLINICAL HISTORY: 54-year-old male R22.41 swelling of right lower limb. SIDE PERFORMED: Right TECHNIQUE: The lower extremity deep venous system is examined utilizing real time linear array sonog tobias with graded compression, doppler sonography and color-flow sonography. FINDINGS: VESSELS IMAGED: External Iliac Vein (EIV) Common Femoral Vein Deep Femoral Vein Greater Saphenous Vein * Femoral Vein Popliteal Vein Small Saphenous Vein * Proximal Calf Veins (* superficial vessels) Right Leg: Negative for DVT Complex, lobulated in shape, thick walled and debris-filled fluid collection visualized in right pop fossa measuring 6.1 x 2.0 x 2.9 cm IMPRESSION: 1. No evidence for DVT within the right lower extremity imaged from the groin to the upper calf. 2. Moderate-sized 6.1 cm complex Cowan's cyst.
== END | disposition home or self-care (01) ==
LOC: RADUSWWP 13:24
PROVIDERS: ATTEND Family Medicine
DX: M71.21 Synovial cyst of popliteal space [Baker], right knee (principal)

== ENCOUNTER → 2020-03-14 | Outpatient (CLI) | payer BC ==
[2020-03-14 11:08] LABS: HCT 48.7 % (39.0-53.0); HGB 16.2 gm/dL (13.0-17.5); MCHC 33.1 g/dL (31.0-37.0); MCV 93.6 fL (80.0-100.0); Mean Platelet Volume 7.1; Platelet Count 235 k/uL (150-450); RBC 5.21 m/uL (4.30-5.90); RDW 12.8 % (11.5-15.5); WBC 8.5 k/uL (3.8-10.6)
[2020-03-14 11:23] LABS: ALT 35 U/L (4-49); AST 30 U/L (17-59); African American GFR (CKD) >90 (>60 ml/min/1.73 sqM); Albumin 4.1 g/dL (3.5-5.0); Alkaline Phosphatase 73 U/L (38-126); Anion Gap 8 mmol/L; Blood Urea Nitrogen 16 mg/dL (9-20); Calcium 9.1 mg/dL (8.4-10.2); Carbon Dioxide 26 mmol/L (22-30); Chloride 105 mmol/L (98-107); Glucose 138 mg/dL (74-99); Non-African American GFR(CKD) >90 (>60 ml/min/1.73 sqM); Potassium 4.5 mmol/L (3.5-5.1); Sodium 139 mmol/L (137-145); Total Protein 6.7 g/dL (6.3-8.2)
[2020-03-14 11:33] LABS: Appearance,Urine Clear (Clear); Bilirubin,Urine Negative (Negative); Blood,Urine Negative (Negative); Color,Urine Yellow; Glucose,Urine (UA) Negative (Negative); Ketones,Urine Negative (Negative); Leukocyte Esterase,Urine Negative (Negative); Nitrite,Urine Negative (Negative); Protein,Urine Trace (Negative); Specific Gravity,Urine 1.027 (1.001-1.035)
[2020-03-14 12:03] LABS: Partial Thromboplastin Time 23.8 sec (22.0-30.0); Prothrombin Time 10.7 sec (9.0-12.0)
== END | disposition home or self-care (01) ==
LOC: LABPAT 10:27
PROVIDERS: ATTEND Orthopaedic Surgery
DX: Z01.818 Encounter for other preprocedural examination (principal); M17.11 Unilateral primary osteoarthritis, right knee; Z01.812 Encounter for preprocedural laboratory examination
CPT/HCPCS: 36415; 80053; 81003; 85027; 85610; 85730; 87070

== ENCOUNTER 2020-04-05 14:00 | Inpatient (IN) | payer BC ==
[2020-04-01 13:16] VITALS: BMI 30.5
[~2020-04-05 14:00] MED LIST changes: -DEXAMETHASONE SOD PHOSPHATE 10 MG/ML 1 ML VIAL IV ONE; +DEXAMETHASONE SOD PHOSPHATE 4 MG/ML 1 ML VIAL IV ONE; +HYDROcodone/APAP 5-325MG 1 EACH TAB PO PRN; +HYDROmorphone 1 MG/ML 1 ML SYRINGE IVP PRN; -LIDOCAINE 1% 20 ML VIAL (10MG/ML) FOR IV START INTRADERMA PRN; +MAGNESIUM HYDROXIDE 2,400 MG/10 ML CUP PO PRN; +NA PHOS,M-B/NA PHOS,DI-BA 133 ML ENEMA RECTAL PRN; +NALOXONE 0.4 MG/ML 1 ML VIAL IV PRN; +ONDANSETRON 4 MG/2 ML VIAL IVP PRN; +bisacodyL 10 MG SUPP RECTAL PRN; +diazePAM 5 MG TAB PO PRN; +hydrOXYzine pamoate 25 MG CAP PO PRN
[2020-04-05] MEDS: LACTATED RINGERS 1,000 ML IV SCH (14:27)
[2020-04-05 14:29] LABS: Glucose,Whole Blood 92 mg/dL (75-99)
[2020-04-05] MEDS ORDERED: ROPIVACAINE 0.2%-NS ON-Q PUMP 1,090 MG, EMPTY PAIN BALL 1 EACH MISCELLANE PRN (15:13)
--- NOTE | 2020-04-05 15:15 | P.ANPRN ---
Procedure Note - Anesthesia - Nerve Block Performed Right Adductor Canal Time Out Performed: Yes (14:34) Date of Procedure: 04/05/20 Procedure Start Time: :34 Procedure Stop Time: 14:49 Location of Patient: PreOp Indication: Acute Post-Operative Pain, Requested by Surgeon (Dr Quinn Swartz) Sedation Type: Sedate with meaningful contact maintained Preparation: Sterile Prep, Sterile Dressing Position: Supine Catheter: Indwelling Needle Types: Pajunk Needle Gauge: 21 Ultrasound used to visualize needle placement: Yes Ultrasound used to observe medication spread: Yes Injectate: 0.5% Ropivacaine (see comment for volume) (20cc) Blood Aspirated: No Pain Paresthesia on Injection Noted: No Resistance on Injection: Normal Image Stored and Saved: Yes Events: Uneventful and Well Tolerated
[2020-04-05] MEDS ORDERED: fentaNYL (PF) 50 MCG/ML 2 ML AMP ONE (15:40)
[2020-04-05] MEDS ORDERED: SODIUM CHLORIDE 0.9% 100 ML BAG ONE (15:40)
[2020-04-05] MEDS ORDERED: PROPOFOL 10 MG/ML 20 ML VIAL IV ONE (15:40)
[2020-04-05] MEDS ORDERED: TRANEXAMIC ACID 1,000 MG/10 ML VIAL ONE (15:40)
[2020-04-05] MEDS ORDERED: MIDAZOLAM 2 MG/2 ML VIAL ONE (15:40)
[2020-04-05] MEDS ORDERED: LACTATED RINGERS 1,000 ML IV ONE (17:10)
--- NOTE | 2020-04-05 17:10 | P.OP ---
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 and fracture of the femoral component Procedure(s) Performed: Revision right total knee arthroplasty with revision of the femoral component and tibial and patellar polyethylene Implants: Depuy Sigma femoral TC3 cemented size 4 right PFC Sigma tibial insert fixed bearing TC3 size 5, 10 mm Attune patella medialized dome, 41 mm cemented Stout Simplex P bone cement with tobramycin The articulation is metal on polyethylene Anesthesia: spinal Surgeon: Quinn Swartz Event Staff Member #1: Do Ace Estimated Blood Loss (ml): 50 Pathology: other (Cultures 2) Condition: stable Disposition: PACU Indications for Procedure: This is a 54-year-old gentleman that seen by me in the office for pain in his right knee. His x-rays demonstrate polyethylene wear as well as a fracture of the posterior condyles femoral component. He's have the same thing happened to him on his left knee. After discussing the surgical nonsurgical treatment options with her at length he wishes to proceed with revision of his right total knee arthroplasty and informed consent was obtained. Operative Findings: The operative findings are consistent with polyethylene wear and fracture the posterior condyle right femoral component Description of Procedure: Patient was seen in the preoperative area consent was reviewed and operative site was marked with a skin marker. An adductor canal pain catheter was placed by anesthesia in the preoperative area. Patient was then brought to the operating room and given preoperative antibiotics intravenously. A spinal an esthetic was administered by the anesthesia department. A tourniquet was placed on the upper thigh and the lower extremity was prepped and draped in usual sterile fashion. A gram of transexamic acid was given. A universal timeout was then performed which confirmed the patient's name, surgical site, ALLERGIES, and consent. The lower extremity was then exsanguinated and tourniquet was inflated to 250 mmHg. A standard and anterior midline approach to the knee was performed. The skin and subcutaneous tissue was dissected down to the patellar tendon, with the prior scar being excised. A medial parapatellar arthrotomy was then performed. A moderate amount of clear fluid was encountered, and this was cultured 2. The knee was then extended, the patellar was everted, and the knee was again flexed. The components were then inspected. The femoral component had a fracture through the medial posterior condyle with significant polyethylene wear and significant polyethylene wear of the patellar component as well. The tibial poly-was then removed without incident. The poly-was found have significant wear. Attention was directed to the femur. Using a small oscillating saw, the implant cement interface was disrupted, and the femoral component was easily removed with an osteotome and a mallet. There was minimal bone loss encountered. There is found to be a fracture of the posterior medial femoral condyle. Attention was redirected to the femur. The 4-in-1 cutting block was placed and the appropriate cuts were performed. Using the guide, the bone for the femoral box was cut. The bone was then removed for the box. The knee was then extended, and using an oscillating saw the patella component was then removed without difficulty. The patella was then freshened with a saw blade measured and drilled and patella trial placed. Trials were then placed with a 10 mm constrained liner. The knee was able to fully extend and flex to 115 and was stable throughout all range of motion. Trials were then removed. The cut surfaces of bone were then irrigated with pulsatile lavage. The posterior structures were injected with the ropivacaine solution. The knee was also irrigated with Irrisept solution. The components were then opened, the cement was mixed, and the components were then cemented in place. The cement was allowed to harden with the knee in full extension. While the cement was hardening, the remaining soft tissues were then injected with a ropivacaine solution, which consisted of 246.25 mg of ropivacaine, 0.5 mg of epinephrine, 30 mg of Toradol, 80 g of clonidine, and 48.45 mL of sterile water, for a total of 100 mL of fluid injected. After the cemented hardened. The tourniquet was released, and hemostasis was obtained. A second gram of transexamic acid was given. The knee was again irrigated. The knee was again taken through range of motion and found to be stable throughout all range of motion of 0-130, and the patella tracked normally. The fascia was then closed with #2 strata fix suture. The subcutaneous tissue was closed with 3-0 Vicryl and 3-0 strata fix. Dermabond glue was used for the skin and placed with the knee in flexion. The patient was placed in a sterile silver dressing. Patient was then transferred to recovery room in stable condition. The cafe assistant BIANKA Adams was required due the complexity surgery and the need for a skilled surgical services coordinator. She assisted in positioning, draping, retraction, and closure of the wound.
--- NOTE | 2020-04-05 18:25 | XR ---
EXAMINATION TYPE: XR knee limited RT DATE OF EXAM: 04/05/2020 COMPARISON: 06/23/2019 HISTORY: Postop TECHNIQUE: 2 views FINDINGS: There is no fracture nor dislocation. There is knee prosthesis in anatomic position. There is small knee joint effusion. IMPRESSION: No fracture seen. Small joint effusion. No change.
[2020-04-05 18:36] LABS: Glucose,Whole Blood 147 mg/dL (75-99)
[2020-04-05] MEDS: SODIUM CHLORIDE 0.9% 1,000 ML IV SCH (20:16)
[2020-04-05] MEDS: ASPIRIN 81 MG PO SCH (20:26)
[2020-04-05] MEDS ORDERED: SENNOSIDES-DOCUSATE SODIUM 1 EACH TAB PO SCH (21:00)
[2020-04-06] MEDS ORDERED: TAMSULOSIN 0.4 MG CAP.ER.24H PO STA (01:03)
--- NOTE | 2020-04-06 06:20 | P.PN ---
Progress Note - Text The patient is status post right adductor canal catheter placement. The catheter was placed for postoperative pain control, status post total right arthroplasty. Ropivacaine 0.2% is infusing at 8 mLs per hour. The patient has no complaints of right lower extremity numbness or weakness. Patient's VAS score is 1 -10. Assessment: Patient's adductor canal catheter is in place and working appropriately. Plan: continue infusion and adjust it as needed.
[2020-04-06 06:37] LABS: Basophils % (A) 0 %; Eosinophils # (A) 0.1 k/uL (0-0.7); Eosinophils % (A) 1 %; HCT 44.4 % (39.0-53.0); HGB 14.3 gm/dL (13.0-17.5); Lymphocytes # (A) 0.7 k/uL (1.0-4.8); Lymphocytes % (A) 5 %; MCH 30.6 pg (25.0-35.0); MCHC 32.3 g/dL (31.0-37.0); MCV 94.7 fL (80.0-100.0); Mean Platelet Volume 7.2; Monocytes # (A) 0.9 k/uL (0-1.0); Monocytes % (A) 5 %; Neutrophils # (A) 14.9 k/uL (1.3-7.7); Neutrophils % (A) 89 %; Platelet Count 234 k/uL (150-450); RBC 4.68 m/uL (4.30-5.90); RDW 12.7 % (11.5-15.5); WBC 16.7 k/uL (3.8-10.6)
[2020-04-06 07:00] LABS: Glucose,Whole Blood 112 mg/dL (75-99)
[2020-04-06] MEDS ORDERED: PANTOPRAZOLE 40 MG TABLET PO SCH (07:30)
[2020-04-06 07:41] VITALS: BP 129/84; PULSE 61; RESP 14
[2020-04-06] MEDS: ASPIRIN 81 MG PO SCH (08:57)
[2020-04-06] MEDS ORDERED: lisinopriL 20 MG TAB PO SCH (09:00)
[2020-04-06] MEDS ORDERED: METOPROLOL SUCCINATE (ER) 25 MG TAB.ER.24H PO SCH (09:00)
[2020-04-06] MEDS ORDERED: metFORMIN 500 MG TAB PO SCH (09:00)
[2020-04-06] MEDS ORDERED: MELOXICAM 7.5 MG TAB PO SCH (09:00)
[2020-04-06] MEDS ORDERED: amLODIPine 10 MG TAB PO SCH (09:00)
[2020-04-06] MEDS ORDERED: CLOPIDOGREL 75 MG TAB PO SCH (09:00)
--- NOTE | 2020-04-06 09:04 | P.DS ---
Providers Date of admission: 04/05/20 17:58 Expected date of discharge: 04/06/20 Attending physician: Quinn Swartz Consults: 04/05/20 12:47 Consult Physician Routine Consulting Provider: Haris Pizano Consult Reason/Comments: medical management and anticoagulation Do you want consulting provider notified?: Yes Primary care physician: Haris Pizano - Discharge Diagnosis(es) (1) Failed total knee, right Current Visit: Yes Status: Acute (2) Status post revision of total replacement of right knee Current Visit: Yes Status: Acute Hospital Course: This is a 54-year-old male who underwent previous right total knee arthroplasty and developed fracture of the femoral component and polyethylene wear. The patient presented for evaluation as an outpatient. After discussion and consideration patient elects to proceed with revision right total knee arthroplasty. The patient is seen preoperatively by Dr. Swartz and medically cleared for surgery by their primary care physician. Patient is admitted to [facility] on 04/05/2020 for revision right total knee arthroplasty with revision of the femoral component and tibial and patellar polyethylene. The procedure is performed without complication or sequelae. The patient is doing well postoperatively. Labs and vital signs are stable on day of discharge. On day of discharge patient's knee incision is healing well. There is minimal erythema. There is minimal drainage noted at this time. There is minimal soft tissue swelling to the knee. Patient has full foot and ankle motion without difficulty or pain. Calf is soft and nontender to palpation. Neurovascular status to the right lower extremity is intact. Patient is discharged home in good condition. Opioid start talking form is reviewed and signed. Please see med rec for accurate list of home medications. Plan - Discharge Summary Discharge Rx Participant: No New Discharge Prescriptions: New HYDROcodone/APAP 5-325MG [[place] 5-325] 1 - 2 tab PO Q6HR PRN #48 tab PRN Reason: Pain Sennosides [Senokot] 2 tab PO DAILY PRN #60 tablet PRN Reason: Constipation Aspirin [Adult Low Dose Aspirin EC] 81 mg PO BID 30 Days #[address] tablet.[address] Delatorre Action amLODIPine BESYLATE/BENAZEPRIL [Lotrel 10-40 MG] 1 cap PO QAM Clopidogrel [Plavix] 75 mg PO DAILY Omeprazole [PriLOSEC] 20 mg PO AC-BRKFST Atorvastatin Calcium [Lipitor] 80 mg PO HS Aspirin [Adult Low Dose Aspirin EC] 81 mg PO HS Metoprolol Succinate (ER) [Toprol Xl] 25 mg PO QAM metFORMIN HCL [Glucophage] 500 mg PO QAM Tamsulosin HCl [Flomax] 0.4 mg PO HS Ezetimibe [Zetia] 10 mg PO HS Discharge Medication List Aspirin [Adult Low Dose Aspirin EC] 81 mg PO HS 06/15/19 [History] Atorvastatin Calcium [Lipitor] 80 mg PO HS 06/15/19 [History] Clopidogrel [Plavix] 75 mg PO DAILY 06/15/19 [History] Omeprazole [PriLOSEC] 20 mg PO AC-BRKFST 06/15/19 [History] amLODIPine BESYLATE/BENAZEPRIL [Lotrel 10-40 MG] 1 cap PO QAM 06/15/19 [History] Ezetimibe [Zetia] 10 mg PO HS 04/01/20 [History] Metoprolol Succinate (ER) [Toprol Xl] 25 mg PO QAM 04/01/20 [History] Tamsulosin HCl [Flomax] 0.4 mg PO HS 04/01/20 [History] metFORMIN HCL [Glucophage] 500 mg PO QAM 04/01/20 [History] Aspirin [Adult Low Dose Aspirin EC] 81 mg PO BID 30 Days #60 tablet. 04/06/20 [Rx] HYDROcodone/APAP 5-325MG [[place] 5-325] 1 - 2 tab PO Q6HR PRN #48 tab 04/06/20 [Rx] Sennosides [Senokot] 2 tab PO DAILY PRN #60 tablet 04/06/20 [Rx] Follow up Appointment(s)/Referral(s): Quinn Swartz DO [Doctor of Osteopathic Medicine] - 1 Week Activity/Diet/Wound Care/Special Instructions: Weightbearing as tolerated with a walker. CPM 5-6h daily. Leave dressing intact. May be removed by home care nurse or by patient in 10 days. May shower with dressing on. Recommend use of compression stockings daily until follow up to help prevent swelling and blood clots. May remove at night before sleeping. Please resume Plavix and take aspirin 81 mg twice daily for 30 days to help prevent blood clots. Please follow up with [facility] and call with any questions or concerns, . Discharge Disposition: HOME WITH HOME HEALTH SERVICES
[2020-04-06 09:09] VITALS: TEMP 97.8
[2020-04-06] MEDS: SODIUM CHLORIDE 0.9% 1,000 ML IV SCH (11:17)
[2020-04-06] MEDS: LACTATED RINGERS 1,000 ML IV SCH (11:18)
[2020-04-06] MEDS ORDERED: TAMSULOSIN 0.4 MG CAP.ER.24H PO SCH (21:00)
[2020-04-06] MEDS ORDERED: ATORVASTATIN 80 MG TAB PO SCH (21:00)
[2020-04-06] MEDS ORDERED: NON FORMULARY DRUG (Aspirin [Adult Low Dose Aspirin Ec] 81 MG Tablet.Dr) PO SCH (21:00)
[2020-04-06] MEDS ORDERED: EZETIMIBE 10 MG TAB PO SCH (21:00)
--- NOTE | 2020-04-06 21:59 | P.CONS ---
History of Present Illness - Reason for Consult Consult date: 04/06/20 - History of Present Illness This a pleasant 54-year-old white male who was admitted to the hospital for elective total right knee arthroplasty currently postop and doing well with minimum discomfort. I was asked to consult participate regarding this patient. He had some urinary retention last evening which was resolved by straight catheterization and Flomax. He is doing well today voiding without problems he's tolerating food well. Doing his therapy without incident. If he continues to well discharged later today. Review of Systems GENERAL: Patient denies fever. Denies chills. EYES: Denies blurred vision. Denies vision changes. Denies eye pain. EARS, NOSE, MOUTH, & THROAT: Denies headache. Denies sore throat. Denies ear pain. RESPIRATORY: Denies cough. Denies shortness of breath. Denies sputum production. Denies hemoptysis. CARDIOVASCULAR: Denies chest pain or pressure. Denies palpitations. Denies arrhythmias. GASTROINTESTINAL: Denies abdominal pain. Denies diarrhea. Denies constipation. Denies nausea. Denies vomiting. Denies heartburn. Denies blood in the stool. GENITOURINARY: Admits to resolved urinary retention last evening Denies cloudy urine. Denies blood in the urine. MUSCULOSKELETAL: Admits pain and swelling at the incision site. Right knee INTEGUMENTARY: Denies pruitis. Denies rash. PSYCHIATRIC: Denies suicidal or homicial ideations. ENDOCRINE: Denies weight change. Denies polydipsia. Denies polyuria. HEMATOLOGIC: Denies bleeding disorders. Past Medical History Past Medical History: Diabetes Mellitus, GERD/Reflux, Hyperlipidemia, Hypertension, Myocardial Infarction ([place]), Osteoarthritis (OA), Prostate Disorder Additional Past Medical History / Comment(s): BPH,PreDiabetes Last Myocardial Infarction Date:: 01/27/19 History of Any Multi-Drug Resistant Organisms: None Reported Past Surgical History: Cholecystectomy, Heart Catheterization With Stent, Joint Replacement Additional Past Surgical History / Comment(s): yadira knee replacement Past Anesthesia/Blood Transfusion Reactions: Postoperative Nausea & Vomiting (PONV) Additional Past Anesthesia/Blood Transfusion Reaction / Comm: no hx blood transfusion Date of Last Stent Placement:: 01/27/19 Past Psychological History: No Psychological Hx Reported Smoking Status: Never smoker Past Alcohol Use History: Rare Additional Past Alcohol Use History / Comment(s): hx chew tobacco last used 07/22 Past Drug Use History: None Reported - Past Family History Mother Family Medical History: Cancer Father Family Medical History: Cancer Additional Family Medical History / Comment(s): stomach cancer Medications and Allergies Home Medications Medication Instructions Recorded Confirmed Type Aspirin [Adult Low Dose Aspirin EC] 81 mg PO HS 06/15/19 04/05/20 History Atorvastatin Calcium [Lipitor] 80 mg PO HS 06/15/19 04/05/20 History Clopidogrel [Plavix] 75 mg PO DAILY 06/15/19 04/05/20 History Omeprazole [PriLOSEC] 20 mg PO AC-BRKFST 06/15/19 04/05/20 History amLODIPine BESYLATE/BENAZEPRIL 1 cap PO QA 06/15/19 04/05/20 History [Lotrel 10-40 MG] Ezetimibe [Zetia] 10 mg PO HS 04/01/20 04/05/20 History Metoprolol Succinate (ER) [Toprol 25 mg PO QA 04/01/20 04/05/20 History Xl] Tamsulosin HCl [Flomax] 0.4 mg PO HS 04/01/20 04/05/20 History metFORMIN HCL [Glucophage] 500 mg PO QA 04/01/20 04/05/20 History Aspirin [Adult Low Dose Aspirin EC] 81 mg PO BID 30 Days #60 tablet. 04/06/20 Rx HYDROcodone/APAP 5-325MG [[place] 1 - 2 tab PO Q6HR PRN #48 tab 04/06/20 Rx 5-325] Sennosides [Senokot] 2 tab PO DAILY PRN #60 tablet 04/06/20 Rx Allergies Allergy/AdvReac Type Severity Reaction Status Date / Time No Known Allergies Allergy Verified 04/01/20 13:07 Physical Exam Osteopathic Statement: *. No significant issues noted on an osteopathic structural exam other than those noted in the History and Physical/Consult. Vitals: Vital Signs Temp Pulse Resp BP Pulse Ox 04/06/20 09:00 97.8 F 04/06/20 07:40 97.5 F L 61 14 129/84 97 04/06/20 01:50 97.9 F 70 110/68 92 L 04/05/20 21:43 75 114/73 Intake and Output 04/06/20 04/06/2004/06/20 06:59 14:59 22:59 Output Total 650 500 Balance -650 -500 Output: Urine 650 500 Straight 650 GENERAL: This is a -54 year-old in no apparent distress at the time of examination. Pleasant and cooperative. HEENT: Head is atraumatic, normocephalic. Pupils are equal, round, and reactive to light. Sclerae anicteric. Conjunctivae are clear. Mucus membranes of the mouth are moist. Neck is supple. RESPIRATORY: Clear to auscultation. No wheezes, rales, or rhonchi. No use of accessory muscles. Patient maintaining oxygen saturation greater than 92%. No chest wall tenderness is noted on palpation or with deep breathing. CARDIOVASCULAR: Regular rate and rhythm. S1 and S2 noted. No systolic or diastolic murmur auscultated. No JVD noted. No S3 or S4 noted. GASTROINTESTINAL: No distention noted. Abdomen soft and round. Normal active bowel sounds auscultated x 4 quadrants. No pain or tenderness noted upon palpation. INTEGUMENTARY: No cyanosis. No jaundice. No rashes noted. No cellulitis noted. EXTREMITIES: 2+ peripheral pulses. No evidence of peripheral edema. No calf tenderness noted. NEUROLOGIC: Cranial nerves II-XII intact. PSYCHIATRIC: Awake, alert, and oriented X 3. Appropriate affect. Intact judgement and insight. Results CBC & Chem 7: 04/06/20 06:20 Labs: Abnormal Lab Results - Last 24 Hours (Table) 04/06/20 04/06/20 Range/Units 06:20 06:59 WBC 16.7 H (3.8-10.6) k/uL Neutrophils # 14.9 H (1.3-7.7) k/uL Lymphocytes # 0.7 L (1.0-4.8) k/uL POC Glucose (mg/dL) 112 H (75-99) mg/dL Microbiology - Last 24 Hours (Table) 04/05/20 17:02 Gram Stain - Preliminary Knee - Right Wound Culture - Preliminary 04/05/20 17:01 Gram Stain - Preliminary Knee - Right Wound Culture - Preliminary 04/05/20 17:01 Anaerobic Culture - Preliminary Knee - Right 04/05/20 17:02 Anaerobic Culture - Preliminary Knee - Right Assessment and Plan (1) Loose right total knee arthroplasty Status: Acute Code(s): T84.032A - [facility] LOOSENING OF INTERNAL RIGHT KNEE PROSTHETIC JOINT, INIT SNOMED Code(s): 531460885 (2) Hypertension Status: Acute Code(s): I10 - ESSENTIAL (PRIMARY) HYPERTENSION SNOMED Cod e(s): 36651931 (3) Status post revision of total replacement of right knee Status: Acute Code(s): Z96.651 - PRESENCE OF RIGHT ARTIFICIAL KNEE JOINT SNOMED Code(s): 059523482170291 (4) Diabetes 1.5, managed as type 1 Status: Acute Code(s): E13.9 - OTHER SPECIFIED DIABETES MELLITUS WITHOUT COMPLICATIONS SNOMED Code(s): 297450144 (5) Diabetes type 2, controlled Status: Acute Code(s): E11.9 - TYPE 2 DIABETES MELLITUS WITHOUT COMPLICATIONS SNOMED Code(s): 01708635 (6) GERD (gastroesophageal reflux disease) Status: Acute Code(s): K21.9 - GASTRO-ESOPHAGEAL REFLUX DISEASE WITHOUT ESOPHAGITIS SNOMED Code(s): 701225541 (7) Acute urinary retention Status: Acute Code(s): R33.8 - OTHER RETENTION OF URINE SNOMED Code(s): 569310513 Plan: Postoperative care DVT prophylaxis pain control early ambulation and rehabilitation. in progress. Care thank you for allowing me to participate in this patient's care if I communicated assistance please contact me
== END 2020-04-06 12:15 | disposition home health service (06) | DRG 468 ==
LOC: OR 14:00 → 4SSUR 17:39 → OR 18:00
PROVIDERS: ADMIT Orthopaedic Surgery; ATTEND Orthopaedic Surgery
PROC: 0SPC0JZ Removal of Synthetic Substitute from Right Knee Joint, Open Approach (ICD-10-PCS; principal; 2020-04-05 16:40)
PROC: 0SRC0J9 Replacement of Right Knee Joint with Synthetic Substitute, Cemented, Open Approach (ICD-10-PCS; principal; 2020-04-05 16:40)
DX: T84.012A Broken internal right knee prosthesis, initial encounter (principal); T84.092A Other mechanical complication of internal right knee prosthesis, initial encounter; Y79.2 Prosthetic and other implants, materials and accessory orthopedic devices associated with adverse incidents; I25.10 Atherosclerotic heart disease of native coronary artery without angina pectoris; I10 Essential (primary) hypertension; R33.8 Other retention of urine; E78.5 Hyperlipidemia, unspecified; R26.81 Unsteadiness on feet; K21.00 Gastro-esophageal reflux disease with esophagitis, without bleeding; E13.9 Other specified diabetes mellitus without complications; N40.1 Benign prostatic hyperplasia with lower urinary tract symptoms; I25.2 Old myocardial infarction; Z96.652 Presence of left artificial knee joint; Z95.5 Presence of coronary angioplasty implant and graft; Z90.49 Acquired absence of other specified parts of digestive tract; Z79.84 Long term (current) use of oral hypoglycemic drugs; Z79.899 Other long term (current) drug therapy; Z82.49 Family history of ischemic heart disease and other diseases of the circulatory system; Z79.02 Long term (current) use of antithrombotics/antiplatelets; Z79.82 Long term (current) use of aspirin; Z80.0 Family history of malignant neoplasm of digestive organs; Z98.890 Other specified postprocedural states
CPT/HCPCS: 64448; 76942; 85025; 87070; 87075; 87205

== ENCOUNTER 2020-05-24 15:39 | Emergency (ER) | payer BC ==
[2020-05-24 15:52] VITALS: RESP 18
[2020-05-24] MEDS ORDERED: ACETAMINOPHEN TAB 500 MG TAB PO STA (16:09)
[2020-05-24] MEDS ORDERED: SODIUM CHLORIDE 0.9% 1,000 ML IV STA (16:09)
--- NOTE | 2020-05-24 16:13 | ED ---
General Adult HPI - General Chief complaint: Fever Stated complaint: Fever/SOB/High HR/Low BP Time Seen by Provider: 05/24/20 16:00 Source: patient, RN notes reviewed Mode of arrival: ambulatory Limitations: no limitations - History of Present Illness Initial comments: 54-year-old male with a past medical history of hyperlipidemia, hypertension, GERD presents to the emergency room for a chief complaint of fever. Patient has had a fever for 4-5 days. States today his temperature was up to 103. He has been alternating Motrin and Tylenol. He did take Motrin 800 prior to arrival. Patient states that the day before this started he did have a boil on his scrotum that was draining. He was started on Bactrim by Dr. Pizano at that time. She reports that that has completely resolved. He denies any abdominal pain. Otherwise he has not had any other symptoms. No cough congestion. Slight shortness of breath only when his chills are severe. He tested negative for Covid 4 days ago. He reports that today he was talking to his daughter who is a nurse. His blood pressure was 98 systolic and his heart rate was in the 120s and she became concerned with his fever. Recommended he come to the emergency room.of note patient did have a right knee replacement about a month and a half ago. he has not had any increased pain swelling or redness in the knee. Patient has no other complaints at this time including chest pain, abdominal pain, nausea or vomiting, headache, or visual changes. - Related Data Home Medications Medication Instructions Recorded Confirmed Atorvastatin Calcium [Lipitor] 80 mg PO HS 06/15/19 05/24/20 Omeprazole [PriLOSEC] 20 mg PO AC-BRKFST 06/15/19 05/24/20 amLODIPine BESYLATE/BENAZEPRIL 1 cap PO QAM 06/15/19 05/24/20 [Lotrel 10-40 MG] Ezetimibe [Zetia] 10 mg PO HS 04/01/20 05/24/20 Metoprolol Succinate (ER) [Toprol 25 mg PO QAM 04/01/20 05/24/20 Xl] Tamsulosin HCl [Flomax] 0.4 mg PO HS 04/01/20 05/24/20 metFORMIN HCL [Glucophage] 500 mg PO QAM 04/01/20 05/24/20 Acetaminophen [Tylenol Arthritis] 1,300 mg PO Q4H PRN 05/24/20 05/24/20 Ibuprofen [Motrin] 800 mg PO Q8H PRN 05/24/20 05/24/20 Sulfamethoxazole/Trimethoprim 1 tab PO Q12H 05/24/20 05/24/20 [Bactrim DS 800-160 mg] Previous Rx's Medication Instructions Recorded Aspirin [Adult Low Dose Aspirin EC] 81 mg PO BID 30 Days #60 tablet. 04/06/20 Allergies Allergy/AdvReac Type Severity Reaction Status Date / Time No Known Allergies Allergy Verified 05/24/20 17:18 Review of Systems ROS Statement: Those systems with pertinent positive or pertinent negative responses have been documented in the HPI. ROS Other: All systems not noted in ROS Statement are negative. Past Medical History Past Medical History: GERD/Reflux, Hyperlipidemia, Hypertension, Myocardial Infarction ([place]), Osteoarthritis (OA) Additional Past Medical History / Comment(s): BPH,PreDiabetes Last Myocardial Infarction Date:: 01/27/19 History of Any Multi-Drug Resistant Organisms: None Reported Past Surgical History: Cholecystectomy, Heart Catheterization With Stent, Joint Replacement Additional Past Surgical History / Comment(s): yadira knee replacement Past Anesthesia/Blood Transfusion Reactions: Postoperative Nausea & Vomiting (PONV) Additional Past Anesthesia/Blood Transfusion Reaction / Comment(s): no hx blood transfusion Date of Last Stent Placement:: 01/27/19 Past Psychological History: No Psychological Hx Reported Smoking Status: Never smoker Past Alcohol Use History: Rare Past Drug Use History: None Reported - Past Family History Mother Family Medical History: Cancer Father Family Medical History: Cancer Additional Family Medical History / Comment(s): stomach cancer General Exam Limitations: no limitations General appearance: alert, in no apparent distress Head exam: Present: atraumatic, normocephalic, normal inspection Eye exam: Present: normal appearance, PERRL, EOMI. Absent: scleral icterus, conjunctival injection, periorbital swelling ENT exam: Present: normal exam, normal oropharynx, mucous membranes moist, TM's normal bilaterally, normal external ear exam Neck exam: Present: normal inspection, full ROM. Absent: tenderness, meningismus, lymphadenopathy Respiratory exam: Present: normal lung sounds bilaterally. Absent: respiratory distress, wheezes, rales, rhonchi, stridor Cardiovascular Exam: Present: tachycardia, normal heart sounds. Absent: systolic murmur, diastolic murmur, rubs, gallop, clicks GI/Abdominal exam: Present: soft, normal bowel sounds. Absent: distended, tenderness, guarding, rebound, rigid exam: Present: normal inspection (No evidence of infection, abscess has resolved. Philomena KINCAID present for exam). Absent: testicular tenderness, urethral discharge, scrotal swelling, vertical testicular lie, circumcision Extremities exam: Present: full ROM (Full range of motion of the right knee.), other (No erythema edema or increased warmth noted of the right knee. No evidence of infection.) Neurological exam: Present: alert Course Vital Signs 05/24/20 05/24/20 05/24/20 15:46 15:53 16:08 Temperature 99 F 100.3 F H Pulse Rate 120 H 113 H Respiratory 18 Rate Blood Pressure 104/69 O2 Sat by Pulse 96 Oximetry 05/24/20 17:29 Temperature Pulse Rate 90 Respiratory 18 Rate Blood Pressure 115/72 O2 Sat by Pulse 96 Oximetry EKG Findings - EKG Comments: EKG Findings:: Normal sinus rhythm, ventricular rate 97, AR interval 124, QTc 457, no evidence of ST elevation or depression. This was compared to previous EKG from June 2019 and does appear similar with right bundle branch block. Medical Decision Making - Medical Decision Making Vitals are stable. Patient initially tachycardic reflexive a fever of 100.3. He was given Tylenol and vitals normalized. His daughter was also concerned about a borderline blood pressure. Patient was dehydrated and this did improve after fluids. He did not have a low blood pressure in the emergency room. Physical exam unremarkable. No abdominal tenderness. No tonsillar exudates, uvula midline. Lungs are clear. CBC CMP unremarkable. There is evidence of dehydration with increased creatinine of 1.28. Urinalysis unremarkable. Influenza and COVID are negative. Heterophile is positive. This is likely the cause of patient's fever. No upper abdominal pain. No evidence of pharyngitis on exam. At this time vitals have remained table. Patient is well-appearing, nontoxic. He will be discharged home with diagnoses of viral syndrome. If he has worsening symptoms she will return here to the emergency room. I discussed this case with attending Dr. Bailon who agrees with this assessment and treatment plan. - Lab Data Result diagrams: 05/24/20 16:22 05/24/20 16:22 Lab Results 05/24/20 05/24/20 05/24/20 Range/Units 16:22 16:22 16:22 WBC 7.0 (3.8-10.6) k/uL RBC 5.21 (4.30-5.90) m/uL Hgb 15.7 (13.0-17.5) gm/dL Hct 46.8 (39.0-53.0) % MCV 89.8 (80.0-100.0) fL MCH 30.1 (25.0-35.0) pg MCHC 33.6 (31.0-37.0) g/dL RDW 13.2 (11.5-15.5) % Plt Count 193 (150-450) k/uL MPV 7.4 Neutrophils % 85 % Lymphocytes % 4 % Monocytes % 5 % Eosinophils % 1 % Basophils % 2 % Neutrophils # 6.0 (1.3-7.7) k/uL Lymphocytes # 0.3 L (1.0-4.8) k/uL Monocytes # 0.4 (0-1.0) k/uL Eosinophils # 0.1 (0-0.7) k/uL Basophils # 0.1 (0-0.2) k/uL Sodium (137-145) mmol/L Potassium (3.5-5.1) mmol/L Chloride (98-107) mmol/L Carbon Dioxide (22-30) mmol/L Anion Gap mmol/L BUN (9-20) mg/dL Creatinine (0.66-1.25) mg/dL Est GFR (CKD-EPI)AfAm (>60 ml/min/1.73 sqM) Est GFR (CKD-EPI)NonAf (>60 ml/min/1.73 sqM) Glucose (74-99) mg/dL Plasma Lactic Acid Miguel A (0.7-2.0) mmol/L Calcium (8.4-10.2) mg/dL Total Bilirubin (0.2-1.3) mg/dL AST (17-59) U/L ALT (4-49) U/L Alkaline Phosphatase (38-126) U/L Total Protein (6.3-8.2) g/dL Albumin (3.5-5.0) g/dL Urine Color Yellow Urine Appearance Cloudy (Clear) Urine pH 6.0 (5.0-8.0) Ur Specific [place] 1.030 (1.001-1.035) Urine Protein 1+ H (Negative) Urine Glucose (UA) Negative (Negative) Urine Ketones Negative (Negative) Urine Blood Negative (Negative) Urine Nitrite Negative (Negative) Urine Bilirubin 1+ H (Negative) Urine Urobilinogen 2.0 (<2.0) mg/dL Ur Leukocyte Esterase Negative (Negative) Urine RBC 1 (0-5) /hpf Urine WBC 6 H (0-5) /hpf Ur Squamous Epith Cells <1 (0-4) /hpf Hyaline Casts 11 H (0-2) /lpf Urine Mucus Many H (None) /hpf Coronavirus (PCR) (Not Detectd) Heterophile Antibody Positive (Negative) Influenza Type A RNA (Not Detectd) Influenza Type B (PCR) (Not Detectd) 05/24/20 05/24/20 05/24/20 Range/Units 16:22 16:22 16:22 WBC (3.8-10.6) k/uL RBC (4.30-5.90) m/uL Hgb (13.0-17.5) gm/dL Hct (39.0-53.0) % MCV (80.0-100.0) fL MCH (25.0-35.0) pg MCHC (31.0-37.0) g/dL RDW (11.5-15.5) % Plt Count (150-450) k/uL MPV Neutrophils % % Lymphocytes % % Monocytes % % Eosinophils % % Basophils % % Neutrophils # (1.3-7.7) k/uL Lymphocytes # (1.0-4.8) k/uL Monocytes # (0-1.0) k/uL Eosinophils # (0-0.7) k/uL Basophils # (0-0.2) k/uL Sodium 137 (137-145) mmol/L Potassium 4.6 (3.5-5.1) mmol/L Chloride 105 (98-107) mmol/L Carbon Dioxide 23 (22-30) mmol/L Anion Gap 9 mmol/L BUN 18 (9-20) mg/dL Creatinine 1.28 H (0.66-1.25) mg/dL Est GFR (CKD-EPI)AfAm 73 (>60 ml/min/1.73 sqM) Est GFR (CKD-EPI)NonAf 63 (>60 ml/min/1.73 sqM) Glucose 118 H (74-99) mg/dL Plasma Lactic Acid Miguel A 1.4 (0.7-2.0) mmol/L Calcium 9.4 (8.4-10.2) mg/dL Total Bilirubin 1.0 (0.2-1.3) mg/dL AST 47 (17-59) U/L ALT 60 H (4-49) U/L Alkaline Phosphatase 76 (38-126) U/L Total Protein 7.0 (6.3-8.2) g/dL Albumin 4.0 (3.5-5.0) g/dL Urine Color Urine Appearance (Clear) Urine pH (5.0-8.0) Ur Specific [place] (1.001-1.035) Urine Protein (Negative) Urine Glucose (UA) (Negative) Urine Ketones (Negative) Urine Blood (Negative) Urine Nitrite (Negative) Urine Bilirubin (Negative) Urine Urobilinogen (<2.0) mg/dL Ur Leukocyte Esterase (Negative) Urine RBC (0-5) /hpf Urine WBC (0-5) /hpf Ur Squamous Epith Cells (0-4) /hpf Hyaline Casts (0-2) /lpf Urine Mucus (None) /hpf Coronavirus (PCR) (Not Detectd) Heterophile Antibody (Negative) Influenza Type A RNA Not Detected (Not Detectd) Influenza Type B (PCR) Not Detected (Not Detectd) 05/24/20 Range/Units 16:22 WBC (3.8-10.6) k/uL RBC (4.30-5.90) m/uL Hgb (13.0-17.5) gm/dL Hct (39.0-53.0) % MCV (80.0-100.0) fL MCH (25.0-35.0) pg MCHC (31.0-37.0) g/dL RDW (11.5-15.5) % Plt Count (150-450) k/uL MPV Neutrophils % % Lymphocytes % % Monocytes % % Eosinophils % % Basophils % % Neutrophils # (1.3-7.7) k/uL Lymphocytes # (1.0-4.8) k/uL Monocytes # (0-1.0) k/uL Eosinophils # (0-0.7) k/uL Basophils # (0-0.2) k/uL Sodium (137-145) mmol/L Potassium (3.5-5.1) mmol/L Chloride (98-107) mmol/L Carbon Dioxide (22-30) mmol/L Anion Gap mmol/L BUN (9-20) mg/dL Creatinine (0.66-1.25) mg/dL Est GFR (CKD-EPI)AfAm (>60 ml/min/1.73 sqM) Est GFR (CKD-EPI)NonAf (>60 ml/min/1.73 sqM) Glucose (74-99) mg/dL Plasma Lactic Acid Miguel A (0.7-2.0) mmol/L Calcium (8.4-10.2) mg/dL Total Bilirubin (0.2-1.3) mg/dL AST (17-59) U/L ALT (4-49) U/L Alkaline Phosphatase (38-126) U/L Total Protein (6.3-8.2) g/dL Albumin (3.5-5.0) g/dL Urine Color Urine Appearance (Clear) Urine pH (5.0-8.0) Ur Specific [place] (1.001-1.035) Urine Protein (Negative) Urine Glucose (UA) (Negative) Urine Ketones (Negative) Urine Blood (Negative) Urine Nitrite (Negative) Urine Bilirubin (Negative) Urine Urobilinogen (<2.0) mg/dL Ur Leukocyte Esterase (Negative) Urine RBC (0-5) /hpf Urine WBC (0-5) /hpf Ur Squamous Epith Cells (0-4) /hpf Hyaline Casts (0-2) /lpf Urine Mucus (None) /hpf Coronavirus (PCR) Not Detected (Not Detectd) Heterophile Antibody (Negative) Influenza Type A RNA (Not Detectd) Influenza Type B (PCR) (Not Detectd) Disposition Clinical Impression: Mononucleosis Disposition: HOME SELF-CARE Condition: Good Instructions (If sedation given, give patient instructions): Mononucleosis (ED), Fever in Adults (ED) Additional Instructions: Please drink plenty of fluids as you're dehydrated. Continue Motrin and Tylenol for fever. You may alternate these every 3 hours. Follow-up with primary care in 1-2 days. Return to the emergency room for any worsening symptoms. Is patient prescribed a controlled substance at d/c from ED?: No Referrals: Haris Pizano DO [Primary Care Provider] - 1-2 days Time of Disposition: 17:34
[2020-05-24 16:17] VITALS: TEMP 100.3
[2020-05-24 16:37] LABS: Basophils # (A) 0.1 k/uL (0-0.2); Basophils % (A) 2 %; Eosinophils # (A) 0.1 k/uL (0-0.7); Eosinophils % (A) 1 %; HCT 46.8 % (39.0-53.0); HGB 15.7 gm/dL (13.0-17.5); Lymphocytes # (A) 0.3 k/uL (1.0-4.8); Lymphocytes % (A) 4 %; MCH 30.1 pg (25.0-35.0); MCHC 33.6 g/dL (31.0-37.0); MCV 89.8 fL (80.0-100.0); Mean Platelet Volume 7.4; Monocytes # (A) 0.4 k/uL (0-1.0); Monocytes % (A) 5 %; Neutrophils % (A) 85 %; Platelet Count 193 k/uL (150-450); RBC 5.21 m/uL (4.30-5.90); RDW 13.2 % (11.5-15.5)
[2020-05-24 16:48] LABS: Calcium 9.4 mg/dL (8.4-10.2); Potassium 4.6 mmol/L (3.5-5.1)
[2020-05-24 16:51] LABS: Appearance,Urine Cloudy (Clear); Bilirubin,Urine 1+ (Negative); Blood,Urine Negative (Negative); Color,Urine Yellow; Glucose,Urine (UA) Negative (Negative); Hyaline Casts,Urine 11 /lpf (0-2); Ketones,Urine Negative (Negative); Leukocyte Esterase,Urine Negative (Negative); Mucus,Urine Many /hpf; Nitrite,Urine Negative (Negative); Protein,Urine 1+ (Negative); RBC,Urine 1 /hpf (0-5); Squamous Epithelial Cell,Urine <1 /hpf (0-4); WBC,Urine 6 /hpf (0-5)
--- NOTE | 2020-05-24 17:18 | XR ---
EXAMINATION TYPE: XR chest 1V portable DATE OF EXAM: 05/24/2020 COMPARISON: 06/24/2019 HISTORY: Fever TECHNIQUE: FINDINGS: Heart is normal. Lungs are clear of consolidation. There are no hilar masses. There are elenita st leads. Bony thorax is intact. IMPRESSION: No active cardiopulmonary disease. Normal heart. There is clearing of minimal pleural olman ction and atelectasis at lung base on the left side compared to old exam.
[2020-05-24 17:29] VITALS: BP 115/72; PULSE 90
== END 2020-05-24 17:58 | disposition home or self-care (01) ==
LOC: EC 15:39
DX: B27.90 Infectious mononucleosis, unspecified without complication (principal); R00.0 Tachycardia, unspecified; E86.0 Dehydration; R06.02 Shortness of breath; K21.9 Gastro-esophageal reflux disease without esophagitis; E78.5 Hyperlipidemia, unspecified; I10 Essential (primary) hypertension; I25.2 Old myocardial infarction; M19.90 Unspecified osteoarthritis, unspecified site; Z20.828 Contact with and (suspected) exposure to other viral communicable diseases; Z79.899 Other long term (current) drug therapy; Z90.49 Acquired absence of other specified parts of digestive tract; Z95.5 Presence of coronary angioplasty implant and graft; Z96.653 Presence of artificial knee joint, bilateral
CPT/HCPCS: 36415; 71045; 80053; 81001; 83605; 85025; 86308; 87040; 87502; 87635; 93005; 96360; 99284

== ENCOUNTER 2021-07-09 17:22 | Emergency (ER) | payer BC ==
[2021-07-09 17:32] VITALS: RESP 18
[2021-07-09] MEDS ORDERED: ACETAMINOPHEN TAB 500 MG TAB PO STA (17:38)
--- NOTE | 2021-07-09 17:38 | ED ---
General Adult HPI - General Chief complaint: Upper Respiratory Infection Stated complaint: sob Time Seen by Provider: 07/09/21 17:28 Source: patient, RN notes reviewed, old records reviewed Mode of arrival: EMS Limitations: no limitations - History of Present Illness Initial comments: 55-year-old male, well appearing and in no acute distress, presents to the emergency room after going to urgent care for coronavirus test. Patient states that his daughter tested positive for coronavirus. He developed cough, shortness of breath and fever on Saturday. He was at urgent care and they told him his oxygen level was 93% and to come to the emergency room. They did a send out covid swab and a chest x-ray and were concerned for pneumonia. He does have a history of hypertension. He has not been vaccinated against coronavirus. Patient denies any chest pain, nausea, vomiting or diarrhea. -: days(s) (5) Severity scale (1-10): 0 Consistency: constant Associated Symptoms: cough, fever/chills, shortness of breath - Related Data Home Medications Medication Instructions Recorded Confirmed Atorvastatin Calcium [Lipitor] 80 mg PO HS 06/15/19 05/24/20 Omeprazole [PriLOSEC] 20 mg PO AC-BRKFST 06/15/19 05/24/20 amLODIPine BESYLATE/BENAZEPRIL 1 cap PO QAM 06/15/19 05/24/20 [Lotrel 10-40 MG] Ezetimibe [Zetia] 10 mg PO HS 04/01/20 05/24/20 Metoprolol Succinate (ER) [Toprol 25 mg PO QAM 04/01/20 05/24/20 Xl] Tamsulosin HCl [Flomax] 0.4 mg PO HS 04/01/20 05/24/20 metFORMIN HCL [Glucophage] 500 mg PO QAM 04/01/20 05/24/20 Acetaminophen [Tylenol Arthritis] 1,300 mg PO Q4H PRN 05/24/20 05/24/20 Ibuprofen [Motrin] 800 mg PO Q8H PRN 05/24/20 05/24/20 Sulfamethoxazole/Trimethoprim 1 tab PO Q12H 05/24/20 05/24/20 [Bactrim DS 800-160 mg] Previous Rx's Medication Instructions Recorded Aspirin [Adult Low Dose Aspirin EC] 81 mg PO BID 30 Days #60 tablet.dr 04/06/20 Albuterol Inhaler [Ventolin Hfa 2 puff INHALATION RT-QID #8 gm 07/09/21 Inhaler] Allergies Allergy/AdvReac Type Severity Reaction Status Date / Time No Known Allergies Allergy Verified 05/24/20 17:18 Review of Systems ROS Statement: Those systems with pertinent positive or pertinent negative responses have been documented in the HPI. ROS Other: All systems not noted in ROS Statement are negative. Past Medical History Past Medical History: GERD/Reflux, Hyperlipidemia, Hypertension, Myocardial Infarction ([place]), Osteoarthritis ([place]) Additional Past Medical History / Comment(s): BPH,PreDiabetes Last Myocardial Infarction Date:: 01/27/19 History of Any Multi-Drug Resistant Organisms: None Reported Past Surgical History: Cholecystectomy, Heart Catheterization With Stent, Joint Replacement Additional Past Surgical History / Comment(s): yadira knee replacement Past Anesthesia/Blood Transfusion Reactions: Postoperative Nausea & Vomiting (PONV) Additional Past Anesthesia/Blood Transfusion Reaction / Comment(s): no hx blood transfusion Date of Last Stent Placement:: 01/27/19 Past Psychological History: No Psychological Hx Reported Smoking Status: Never smoker Past Alcohol Use History: Rare Past Drug Use History: None Reported - Past Family History Mother Family Medical History: Cancer Father Family Medical History: Cancer Additional Family Medical History / Comment(s): stomach cancer General Exam Limitations: no limitations General appearance: alert, in no apparent distress Head exam: Present: atraumatic, normocephalic, normal inspection Eye exam: Present: normal appearance, EOMI. Absent: scleral icterus, conjunctival injection ENT exam: Present: normal exam, normal oropharynx, mucous membranes moist Neck exam: Present: normal inspection, full ROM. Absent: tenderness, meningismus, lymphadenopathy, thyromegaly Respiratory exam: Present: normal lung sounds bilaterally. Absent: respiratory distress, wheezes, rales, rhonchi, stridor, chest wall tenderness, accessory muscle use Cardiovascular Exam: Present: regular rate, normal heart sounds Back exam: Present: normal inspection, full ROM. Absent: tenderness, CVA tenderness (R), CVA tenderness (L), rash noted Neurological exam: Present: alert, oriented X3, normal gait Psychiatric exam: Present: normal affect, normal mood Skin exam: Present: warm, dry, normal color. Absent: cyanosis, diaphoretic, petechiae, pallor Course Vital Signs 07/09/21 07/09/21 07/09/21 17:25 18:11 20:32 Temperature 100.7 F H 98.1 F Pulse Rate 79 Respiratory 18 18 Rate Blood Pressure 165/113 147/98 147/98 O2 Sat by Pulse 93 L 93 L Oximetry 07/09/21 21:41 Temperature 97.9 F Pulse Rate 77 Respiratory 18 Rate Blood Pressure 135/99 O2 Sat by Pulse 93 L Oximetry Medical Decision Making - Medical Decision Making 55-year-old male presents with cough, shortness of breath and fever since Saturday. His daughter and are both positive for coronavirus. He does have a history of hypertension. Patient is in no acute distress. His oxygen saturation in the emergency room is 93% on room air. His coronavirus swab in the emergency room was positive. He has not been vaccinated against coronavirus therefore meets criteria for monoclonal antibodies. Patient is agreeable to receiving the antibodies. He to lerated the infusion without any difficulties. He states he is feeling better and ready to go home. Instructed to return to the emergency room with any new or worsening symptoms. He was given a prescription for an albuterol inhaler to be used as needed for cough or difficulty in breathing. Vital signs are stable. Case discussed with Dr. Dyson. - Lab Data Lab Results 07/09/21 Range/Units 17:40 Coronavirus (PCR) Detected A (Not Detectd) Disposition Clinical Impression: COVID-19 Disposition: HOME SELF-CARE Condition: Good Instructions (If sedation given, give patient instructions): Coronavirus Disease 2019 (COVID-19) Additional Instructions: Take Tylenol and/or Motrin as needed for fevers or body aches. You can also take vitamin C, vitamin D and zinc to improve immune health. Increase your fluid intake. Use albuterol as prescribed for any shortness of breath or cough, 2 puffs every 4-6 hours as needed. Return to the emergency room with any new or worsening symptoms. Self quarantine for 10 days from symptom onset. If after day five you have no symptoms, you can go in public with just a mask. Prescriptions: Albuterol Inhaler [Ventolin Hfa Inhaler] 2 puff INHALATION RT-QID #8 gm Is patient prescribed a controlled substance at d/c from ED?: No Referrals: Kevyn Bone MD [REFERRING] - 1-2 days Time of Disposition: 21:34
[2021-07-09] MEDS ORDERED: SOTROVIMAB (EUA) 500 MG in SODIUM CHLORIDE 0.9% 100 ML IVPB ONE (19:30)
[2021-07-09] MEDS ORDERED: SODIUM CHLORIDE 0.9% 50 ML IVPB ONE (20:00)
[2021-07-09 21:48] VITALS: BP 135/99; PULSE 77; TEMP 97.9
== END 2021-07-09 21:47 | disposition home or self-care (01) ==
LOC: EC 17:22
DX: U07.1 COVID-19 (principal); I10 Essential (primary) hypertension; I25.2 Old myocardial infarction; E78.5 Hyperlipidemia, unspecified; K21.9 Gastro-esophageal reflux disease without esophagitis; M19.90 Unspecified osteoarthritis, unspecified site; Z79.82 Long term (current) use of aspirin; Z79.1 Long term (current) use of non-steroidal anti-inflammatories (NSAID); Z79.51 Long term (current) use of inhaled steroids; Z79.899 Other long term (current) drug therapy
CPT/HCPCS: 87635; 99285; Q0247

== ENCOUNTER 2022-05-07 08:01 | Inpatient (IN) | payer BC ==
[2022-05-07] MEDS ORDERED: ADENOSINE 3 MG/ML 2 ML VIAL IVP STA (08:16)
[2022-05-07] MEDS ORDERED: SODIUM CHLORIDE 0.9% 500 ML 500 ML IV STA (08:16)
--- NOTE | 2022-05-07 08:32 | ED ---
General Adult HPI - General Chief complaint: Chest Pain Stated complaint: chest pain, SOB Time Seen by Provider: 05/07/22 08:05 Source: patient, RN notes reviewed, old records reviewed Mode of arrival: ambulatory Limitations: no limitations - History of Present Illness Initial comments: This is a 56-year-old male who presents emergency department with past medical history significant for a heart attack with stenting, diabetes and hypertension. Patient comes in today stating that he was sitting at his computer when all of a sudden he became short of breath and had chest pain. Patient states when he stood up he felt Lightheaded. Patient's took his blood pressure and noted his heart rate to be very fast. Patient said his blood pressure was high at home. Patient denies any recent fever chills or cough per patient denies a similar episode of fast heart rate. Patient denies abdominal pain patient denies any similar symptoms. Patient denies any headache patient denies any numbness weakness. Patient has swelling to the legs or calf tenderness. - Related Data Home Medications Medication Instructions Recorded Confirmed Atorvastatin Calcium [Lipitor] 80 mg PO HS 06/15/19 05/07/22 Omeprazole [PriLOSEC] 20 mg PO AC-BRKFST 06/15/19 05/07/22 amLODIPine BESYLATE/BENAZEPRIL 1 cap PO DAILY 06/15/19 05/07/22 [Lotrel 10-40 MG] Ezetimibe [Zetia] 10 mg PO HS 04/01/20 05/07/22 Metoprolol Succinate (ER) [Toprol 25 mg PO DAILY 04/01/20 05/07/22 Xl] Tamsulosin HCl [Flomax] 0.4 mg PO HS 04/01/20 05/07/22 metFORMIN HCL [Glucophage] 500 mg PO AC-BID 04/01/20 05/07/22 Ibuprofen [Motrin] 800 mg PO Q8H PRN 05/24/20 05/07/22 Aspirin [Adult Low Dose Aspirin EC] 81 mg PO HS 05/07/22 05/07/22 Triamterene/Hydrochlorothiazid 1 tab PO DAILY 05/07/22 05/07/22 [Triamterene-Hctz 37.5-25 mg Tb] Allergies Allergy/AdvReac Type Severity Reaction Status Date / Time No Known Allergies Allergy Verified 12/05/22 09:17 Review of Systems ROS Statement: Those systems with pertinent positive or pertinent negative responses have been documented in the HPI. ROS Other: All systems not noted in ROS Statement are negative. Past Medical History Past Medical History: Diabetes Mellitus, GERD/Reflux, Hyperlipidemia, Hypertension, Myocardial Infarction ([place]), Osteoarthritis (OA) Additional Past Medical History / Comment(s): BPH,PreDiabetes Last Myocardial Infarction Date:: 01/27/19 History of Any Multi-Drug Resistant Organisms: None Reported Past Surgical History: Cholecystectomy, Heart Catheterization With Stent, Joint Replacement Additional Past Surgical History / Comment(s): yadira knee replacement Past Anesthesia/Blood Transfusion Reactions: Postoperative Nausea & Vomiting (PONV) Additional Past Anesthesia/Blood Transfusion Reaction / Comment(s): no hx blood transfusion Date of Last Stent Placement:: 01/27/19 Past Psychological History: No Psychological Hx Reported Smoking Status: Never smoker Past Alcohol Use History: Rare Past Drug Use History: None Reported - Past Family History Mother Family Medical History: Cancer Father Family Medical History: Cancer Additional Family Medical History / Comment(s): stomach cancer General Exam - General Exam Comments Initial Comments: GENERAL: Patient is well-developed and well-nourished. Patient is nontoxic and well- hydrated and is in mild distress. ENT: Neck is soft and supple. No significant lymphadenopathy is noted. Oropharynx is clear. Moist mucous membranes. Neck has full range of motion without elici ting any pain. EYES: The sclera were anicteric and conjunctiva were pink and moist. Extraocular m ovements were intact and pupils were equal round and reactive to light. Eyelids were unremarkable. PULMONARY: Unlabored respirations. Good breath sounds bilaterally. No audible rales rhonchi or wheezing was noted. CARDIOVASCULAR: Patient is tachycardic at about 180 beats a minute ABDOMEN: Soft and nontender with normal bowel sounds. SKIN: Skin is clear with no lesions or rashes and otherwise unremarkable. NEUROLOGIC: Patient is alert and oriented x3. Cranial nerves II through XII are grossly intact. Motor and sensory are also intact. Normal speech, volume and content. Symmetrical smile. MUSCULOSKELETAL: Normal extremities with adequate strength and full range of motion. No lower extremity swelling or edema. No calf tenderness. LYMPHATICS: No significant lymphadenopathy is noted PSYCHIATRIC: Normal psychiatric evaluation. Limitations: no limitations Course Vital Signs 05/07/22 05/07/22 05/07/22 08:04 08:09 08:21 Temperature 97.7 F Pulse Rate 48 L 184 H 96 Respiratory 22 20 Rate Blood Pressure 62/52 104/88 O2 Sat by Pulse 95 96 Oximetry 05/07/22 09:06 Temperature Pulse Rate 78 Respiratory 17 Rate Blood Pressure 119/94 O2 Sat by Pulse 96 Oximetry Medical Decision Making - Medical Decision Making EKG as interpreted by me EKG shows an SVT at 184 bpm QRS is 131 Q-T intervals 252 QTC is 348. Patient's EKG shows a right bundle branch block which was the same as previous EKG. Patient was given adenosine 6 mg and converted the patient into a sinus rhythm a second EKG was done that was also interpreted by me. EKG shows sinus rhythm at 96 bpm SD interval 170 QRS the 190 QT interval 336 QTC is 389. Patient's EKG shows a right bundle branch block and no ST segment elevation. Chest x-ray was interpreted by me. Chest x-ray showed no acute abnormality. Patient remained in a sinus rhythm throughout his ED stay. I spoke with Dr. Pierre the clock and watch assembler and he wanted the patient to her be admitted overnight. I spoke with Dr. Pizano he agreed to admit the patient admitted the patient wrote admitting orders. - Lab Data Result diagrams: 05/07/22 08:27 05/07/22 08:27 Lab Results 05/07/22 05/07/22 05/07/22 Range/Units 08:27 08:27 08:27 WBC 11.4 H (3.8-10.6) k/uL RBC 5.38 (4.30-5.90) m/uL Hgb 16.7 (13.0-17.5) gm/dL Hct 48.8 (39.0-53.0) % MCV 90.6 (80.0-100.0) fL MCH 31.1 (25.0-35.0) pg MCHC 34.3 (31.0-37.0) g/dL RDW 12.9 (11.5-15.5) % Plt Count 222 (150-450) k/uL MPV 8.1 Neutrophils % 69 % Lymphocytes % 18 % Monocytes % 5 % Eosinophils % 4 % Basophils % 1 % Neutrophils # 7.9 H (1.3-7.7) k/uL Lymphocytes # 2.1 (1.0-4.8) k/uL Monocytes # 0.6 (0-1.0) k/uL Eosinophils # 0.4 (0-0.7) k/uL Basophils # 0.1 (0-0.2) k/uL PT 10.8 (9.0-12.0) sec INR 1.0 (<1.2) APTT 24.0 (22.0-30.0) sec Sodium 140 (137-145) mmol/L Potassium 4.4 (3.5-5.1) mmol/L Chloride 105 (98-107) mmol/L Carbon Dioxide 26 (22-30) mmol/L Anion Gap 9 mmol/L BUN 16 (9-20) mg/dL Creatinine 1.12 (0.66-1.25) mg/dL Est GFR (CKD-EPI)AfAm 85 (>60 ml/min/1.73 sqM) Est GFR (CKD-EPI)NonAf 73 (>60 ml/min/1.73 sqM) Glucose 168 H (74-99) mg/dL Calcium 9.1 (8.4-10.2) mg/dL Magnesium 1.6 (1.6-2.3) mg/dL Total Bilirubin 1.2 (0.2-1.3) mg/dL AST 30 (17-59) U/L ALT 44 (4-49) U/L Alkaline Phosphatase 92 (38-126) U/L Troponin I (0.000-0.034) ng/mL Total Protein 7.1 (6.3-8.2) g/dL Albumin 4.2 (3.5-5.0) g/dL TSH 3.810 (0.465-4.680) mIU/L 05/07/22 Range/Units 08:27 WBC (3.8-10.6) k/uL RBC (4.30-5.90) m/uL Hgb (13.0-17.5) gm/dL Hct (39.0-53.0) % MCV (80.0-100.0) fL MCH (25.0-35.0) pg MCHC (31.0-37.0) g/dL RDW (11.5-15.5) % Plt Count (150-450) k/uL MPV Neutrophils % % Lymphocytes % % Monocytes % % Eosinophils % % Basophils % % Neutrophils # (1.3-7.7) k/uL Lymphocytes # (1.0-4.8) k/uL Monocytes # (0-1.0) k/uL Eosinophils # (0-0.7) k/uL Basophils # (0-0.2) k/uL PT (9.0-12.0) sec INR (<1.2) APTT (22.0-30.0) sec Sodium (137-145) mmol/L Potassium (3.5-5.1) mmol/L Chloride (98-107) mmol/L Carbon Dioxide (22-30) mmol/L Anion Gap mmol/L BUN (9-20) mg/dL Creatinine (0.66-1.25) mg/dL Est GFR (CKD-EPI)AfAm (>60 ml/min/1.73 sqM) Est GFR (CKD-EPI)NonAf (>60 ml/min/1.73 sqM) Glucose (74-99) mg/dL Calcium (8.4-10.2) mg/dL Magnesium (1.6-2.3) mg/dL Total Bilirubin (0.2-1.3) mg/dL AST (17-59) U/L ALT (4-49) U/L Alkaline Phosphatase (38-126) U/L Troponin I <0.012 (0.000-0.034) ng/mL Total Protein (6.3-8.2) g/dL Albumin (3.5-5.0) g/dL TSH (0.465-4.680) mIU/L Critical Care Time Critical Care Time: Yes Total Critical Care Time: 35 Disposition Clinical Impression: SVT (supraventricular tachycardia) Disposition: ADMITTED IP TO THIS HOSP Referrals: Haris Pizano DO [Primary Care Provider] - 1-2 days Time of Disposition: 09:25
[2022-05-07 08:42] LABS: Basophils # (A) 0.1 k/uL (0-0.2); Basophils % (A) 1 %; Eosinophils # (A) 0.4 k/uL (0-0.7); Eosinophils % (A) 4 %; HCT 48.8 % (39.0-53.0); HGB 16.7 gm/dL (13.0-17.5); Lymphocytes # (A) 2.1 k/uL (1.0-4.8); Lymphocytes % (A) 18 %; MCH 31.1 pg (25.0-35.0); MCHC 34.3 g/dL (31.0-37.0); MCV 90.6 fL (80.0-100.0); Mean Platelet Volume 8.1; Monocytes # (A) 0.6 k/uL (0-1.0); Monocytes % (A) 5 %; Neutrophils # (A) 7.9 k/uL (1.3-7.7); Neutrophils % (A) 69 %; Platelet Count 222 k/uL (150-450); RBC 5.38 m/uL (4.30-5.90); RDW 12.9 % (11.5-15.5); WBC 11.4 k/uL (3.8-10.6)
[2022-05-07 08:45] LABS: Albumin 4.2 g/dL (3.5-5.0); Calcium 9.1 mg/dL (8.4-10.2); Magnesium 1.6 mg/dL (1.6-2.3); Potassium 4.4 mmol/L (3.5-5.1); Total Bilirubin 1.2 mg/dL (0.2-1.3); Total Protein 7.1 g/dL (6.3-8.2)
[2022-05-07 08:52] LABS: Prothrombin Time 10.8 sec (9.0-12.0)
--- NOTE | 2022-05-07 08:54 | XR ---
EXAMINATION TYPE: XR chest 2V DATE OF EXAM: 05/07/2022 8:46 AM COMPARISON: Chest radiographs from 05/24/2020 TECHNIQUE: XR chest 2V Frontal and lateral views of the chest. CLINICAL INDICATION:Male, 56 years old with history of dysrhythmia; FINDINGS: Lungs/Pleura: There is no evidence of pleural effusion, focal consolidation, or pneumothorax. Pulmonary vascularity: Unremarkable. Heart/mediastinum: Cardiomediastinal silhouette is unremarkable. Musculoskeletal: No acute osseous pathology. IMPRESSION: No acute cardiopulmonary disease/process.
[2022-05-07] MEDS ORDERED: METOPROLOL SUCCINATE (ER) 25 MG TAB.ER.24H PO STA (09:11)
[2022-05-07] MEDS ORDERED: NITROGLYCERIN SL TABS 0.4 MG TAB SUBLINGUAL PRN (09:25)
[2022-05-07] MEDS ORDERED: HEPARIN SODIUM 1,000 UN/ML (10ML VL) IV ONE (13:56)
[2022-05-07] MEDS ORDERED: HEPARIN SODIUM 1,000 UN/ML (10ML VL) IV PRN (13:56)
[2022-05-07] MEDS ORDERED: HEPARIN SOD,PORK IN 0.45% NACL 25,000 UNIT in 0.45% NACL 1 250ML.BAG IV SCH (14:00)
[2022-05-07] MEDS ORDERED: IBUPROFEN 800 MG TAB PO PRN (14:04)
--- NOTE | 2022-05-07 14:17 | P.CRDCN ---
History of Present Illness History of present illness: HISTORY OF PRESENTING ILLNESS This is a pleasant 56-year-old male past medical history significant for coronary artery disease in setting of [place] in 2019 and underwent stenting of the distal RCA by Dr. Marquis at [facility], hypertension, hyperlipidemia, total knee arthroplasty, type 2 diabetes. He follows in the office with Dr. Mcrae. We have been asked to see in consultation for SVT. Patient presents emergency department with complaints of sudden onset shortness of breath and chest pain. He states that he was sitting at his computer and had sudden onset of shortness of breath and chest pain, he started to have symptoms of lightheadedness. His took his blood pressure numbers heart rate to be very fast. On presentation to the emergency department patient was found to be in SVT with a heart rate of 184. He was given 6 mg of IV adenosine converted back into sinus mechanism. He denies any chest pain currently. She denies any shortness of breath, lightheadedness, dizziness, syncope or near syncope. No further arrhythmia on telemetry. Denies any history of arrhythmia or SVT, CVA, seizure, lung disease. DIAGNOSTICS * Initial EKG revealed supraventricular tachycardia. After IV adenosine patient's EKG revealed sinus rhythm, heart rate 96, right bundle-branch block, no STT wave abnormalities suggestive ischemia * Echocardiogram 06/2019 revealed an EF of 6065%, borderline LVH * Chest xray no acute cardiopulmonary process * Laboratory reviewed, troponin negative, sodium 140, potassium 4.4, BUN 16 scr 1.1, magnesium 1.6, TSH within normal limits, WBC 1.4, hemoglobin 16.7, platelets 222. * Current home cardiac medications include metformin, amlodipine/benazepril 1040 mgdaily, triamterenehydrochlorothiazide 37.525 mg daily, metoprolol 6020 mg daily, Zetia 10 mg daily, atorvastatin 80 mg nightly, aspirin 81 mg daily. * Lexiscan stress test in the office 07/2019 revealed probably normal perfusion study with mild fixed defects involving the inferior basal segment with preserved LV function, that could be secondary to soft tissue attenuation. Although previous subendocardial [place] cannot be excluded. REVIEW OF SYSTEMS At the time of my exam: CONSTITUTIONAL: Denies fever or chills. CARDIOVASCULAR: Denies chest pain, shortness of breath, orthopnea, PND or palpitations. RESPIRATORY: Denies cough. GASTROINTESTINAL: Denies abdominal pain, diarrhea, constipation, nausea or vomiting. MUSCULOSKELETAL: Denies myalgias. NEUROLOGIC: Denies numbness, tingling, headacbe or weakness. ENDOCRINE: Denies fatigue, weight change, polydipsia or polyurina. GENITOURINARY: Denies burning, hematuria or urgency with micturation. HEMATOLOGIC: Denies history of anemia or bleeding. PHYSICAL EXAMINATION Blood pressure 115/88, heart 71, afebrile, saturations 97% on room air CONSTITUTIONAL: No apparent distress. HEENT: Head is normocephalic. Pupils are equal, round. Sclerae anicteric. Mucous membranes of the mouth are moist. No JVD. No carotid bruit. CHEST EXAMINATION: Lungs are clear to auscultation. No chest wall tenderness is noted on palpation or with deep breathing. HEART EXAMINATION: Regular rate and rhythm. S1, S2 heard. No murmurs, gallops or rub. ABDOMEN: Soft, nontender. Positive bowel sounds. EXTREMITIES: 2+ peripheral pulses, no lower extremity edema and no calf tenderness. NEUROLOGIC EXAMINATION: Patient is awake, alert and oriented x3. ASSESSMENT SVT Elevated troponin Coronary artery disease in setting of [place] in 2019 and underwent stenting of the distal RCA by Dr. Marquis at [facility] Hypertension Hyperlipidemia Type 2 diabetes PLAN Start IV heparin Trend troponin Continue aspirin, statin, beta juany Hold metformin at this time Obtain 2D echocardiogram and doppler study to assess cardiac structure and function. Monitor on cardiac telemetry NPO after midnight for possible cardiac catheterization based on above findings Nurse practitioner note has been reviewed by physician. Signing provider agrees with the documented findings, assessment, and plan of care. Past Medical History Past Medical History: Diabetes Mellitus, GERD/Reflux, Hyperlipidemia, Hypertension, Myocardial Infarction ([place]), Osteoarthritis (OA) Additional Past Medical History / Comment(s): BPH,PreDiabetes Last Myocardial Infarction Date:: 01/27/19 History of Any Multi-Drug Resistant Organisms: None Reported Past Surgical History: Cholecystectomy, Heart Catheterization With Stent, Joint Replacement Additional Past Surgical History / Comment(s): yadira knee replacement Past Anesthesia/Blood Transfusion Reactions: Postoperative Nausea & Vomiting (PONV) Additional Past Anesthesia/Blood Transfusion Reaction / Comment(s): no hx blood transfusion Date of Last Stent Placement:: 01/27/19 Past Psychological History: No Psychological Hx Reported Smoking Status: Never smoker Past Alcohol Use History: Rare Past Drug Use History: None Reported - Past Family History Mother Family Medical History: Cancer Father Family Medical History: Cancer Additional Family Medical History / Comment(s): stomach cancer Medications and Allergies Home Medications Medication Instructions Recorded Confirmed Type Atorvastatin Calcium [Lipitor] 80 mg PO HS 06/15/19 05/07/22 History Omeprazole [PriLOSEC] 20 mg PO AC-BRKFST 06/15/19 05/07/22 History amLODIPine BESYLATE/BENAZEPRIL 1 cap PO DAILY 06/15/19 05/07/22 History [Lotrel 10-40 MG] Ezetimibe [Zetia] 10 mg PO HS 04/01/20 05/07/22 History Metoprolol Succinate (ER) [Toprol 25 mg PO DAILY 04/01/20 05/07/22 History Xl] Tamsulosin HCl [Flomax] 0.4 mg PO HS 04/01/20 05/07/22 History metFORMIN HCL [Glucophage] 500 mg PO AC-BID 04/01/20 05/07/22 History Ibuprofen [Motrin] 800 mg PO Q8H PRN 05/24/20 05/07/22 History Aspirin [Adult Low Dose Aspirin EC] 81 mg PO HS 05/07/22 05/07/22 History Triamterene/Hydrochlorothiazid 1 tab PO DAILY 05/07/22 05/07/22 History [Triamterene-Hctz 37.5-25 mg Tb] Allergies Allergy/AdvReac Type Severity Reaction Status Date / Time No Known Allergies Allergy Verified 05/07/22 09:17 Physical Exam Vitals: Vital Signs Temp Pulse Resp BP Pulse Ox 05/07/22 10:00 71 15 115/88 97 05/07/22 09:06 78 17 119/94 96 05/07/22 09:00 80 17 124/92 97 05/07/22 08:21 96 20 104/88 96 05/07/22 08:15 98 05/07/22 08:09 184 H 05/07/22 08:04 97.7 F 48 L 22 62/52 95 Intake and Output 05/06/22 05/07/22 05/07/22 22:59 06:59 14:59 Other: Weight 104.326 kg Results 05/07/22 08:27 05/07/22 08:27 Cardiac Enzymes 05/07/22 12 Range/Units 08:27 08:27 AST 30 (17-59) U/L Troponin I <0.012 (0.000-0.034) ng/mL Coagulation 05/07/22 Range/Units 08:27 PT 10.8 (9.0-12.0) sec APTT 24.0 (22.0-30.0) sec CBC 05/07/22 Range/Units 08:27 WBC 11.4 H (3.8-10.6) k/uL RBC 5.38 (4.30-5.90) m/uL Hgb 16.7 (13.0-17.5) gm/dL Hct 48.8 (39.0-53.0) % Plt Count 222 (150-450) k/uL Comprehensive Metabolic Panel 05/07/22 Range/Units 08:27 Sodium 140 (137-145) mmol/L Potassium 4.4 (3.5-5.1) mmol/L Chloride 105 (98-107) mmol/L Carbon Dioxide 26 (22-30) mmol/L BUN 16 (9-20) mg/dL Creatinine 1.12 (0.66-1.25) mg/dL Glucose 168 H (74-99) mg/dL Calcium 9.1 (8.4-10.2) mg/dL AST 30 (17-59) U/L ALT 44 (4-49) U/L Alkaline Phosphatase 92 (38-126) U/L Total Protein 7.1 (6.3-8.2) g/dL Albumin 4.2 (3.5-5.0) g/dL Current Medications Generic Name Dose Route Start Last Admin Trade Name Freq PRN Reason Stop Dose Admin Aspirin 325 mg 05/08/22 09:00 Aspirin 325 Mg Tab PO DAILY CHERELLE Nitroglycerin 0.4 mg 05/07/22 09:25 Nitroglycerin Sl Tabs 0.4 Mg Tab SUBLINGUAL Q5M PRN Chest Pain Intake and Output 05/06/22 05/07/22 05/07/22 22:59 06:59 14:59 Other: Weight 104.326 kg Patient Weight 05/08/22 06:59 Weight 104.326 kg 05/07/22 08:27 05/07/22 08:27
[2022-05-07 15:09] LABS: Partial Thromboplastin Time 23.4 sec (22.0-30.0); Prothrombin Time 10.8 sec (9.0-12.0)
--- NOTE | 2022-05-07 17:21 | CA ---
Transthoracic Echo Report Name: Greg Freire Age: 56 Gender: M : 1965 Exam Date: 05/07/2022 13:32 Exam Location: [facility] Ht (in): 72 Wt (lb): 230 Ordering Physician: Maritza Wills Attending/Referring Phys: News Director Katelyn Rao RDCS Procedure CPT: Indications: SVT s/p adenosine Cardiac Hx: Technical Quality: Contrast 1: Total Dose (mL): Contrast 2: Total Dose (mL): MEASUREMENTS (Male / Female) Normal Values 2D ECHO LV Diastolic Diameter PLAX 5.2 cm 4.2 - 5.9 / 3.9 - 5.3 cm LV Systolic Diameter PLAX 3.9 cm IVS Diastolic Thickness 0.7 cm 0.6 - 1.0 / 0.6 - 0.9 cm LVPW Diastolic Thickness 1.2 cm 0.6 - 1.0 / 0.6 - 0.9 cm LV Relative Wall Thickness 0.3 RV Internal Dim ED PLAX 2.8 cm LA Systolic Diameter LX 3.6 cm 3.0 - 4.0 / 2.7 - 3.8 cm LA Volume 59.0 cm??? 18 - 58 / 22 - 52 cm??? M-MODE Aortic Root Diameter MM 2.8 cm LA Systolic Diameter MM 3.4 cm LA Ao Ratio MM 1.2 MV E Point Septal Separation 0.9 cm AV Cusp Separation MM 1.7 cm DOPPLER MV Area PHT 3.8 cm??? Mitral E Point Velocity 51.3 cm/s Mitral A Point Velocity 55.9 cm/s Mitral E to A Ratio 0.9 MV Deceleration Time 197.6 ms MV E' Velocity 7.4 cm/s Mitral E to MV E' Ratio 6.9 TR Peak Velocity 137.9 cm/s TR Peak Gradient 7.6 mmHg Right Ventricular Systolic Press 12.6 mmHg FINDINGS Left Ventricle Normal left ventricular size, wall thickness, systolic function with no obvious regional wall motion abnormalities. Right Ventricle The right ventricle is normal in size and function. Right ventricular systolic pressure within normal limits. Right Atrium The right atrium is normal in size. Left Atrium The left atrium is normal in size. Mitral Valve Structurally normal mitral valve without significant stenosis or prolapse. There is mild mitral regurgitation. Aortic Valve Structurally normal aortic valve without significant sclerosis or stenosis. There is no aortic regurgitation. Tricuspid Valve Structurally normal tricuspid valve without significant stenosis. Pulmonary artery systolic pressure is normal. Pulmonic Valve Structurally normal pulmonic valve without significant stenosis. There is no pulmonic regurgitation. Pericardium Normal pericardium without effusion. Aorta Normal aortic root dimension. CONCLUSIONS Normal LV systolic function Previewed by: Dr. Saúl Mcrae MD (Electronically Signed) Final Date: 07 May 2022 17:21
[2022-05-07] MEDS ORDERED: metFORMIN 500 MG TAB PO SCH (17:30)
[2022-05-07] MEDS ORDERED: ATORVASTATIN 80 MG TAB PO SCH (21:00)
[2022-05-07] MEDS ORDERED: EZETIMIBE 10 MG TAB PO SCH (21:00)
[2022-05-07] MEDS ORDERED: TAMSULOSIN 0.4 MG CAP.ER.24H PO SCH (21:00)
[2022-05-07] MEDS ORDERED: ASPIRIN 81 MG PO SCH (21:00)
[2022-05-08 06:07] LABS: Basophils # (A) 0.1 k/uL (0-0.2); Basophils % (A) 1 %; Eosinophils # (A) 0.4 k/uL (0-0.7); Eosinophils % (A) 4 %; HCT 47.3 % (39.0-53.0); Lymphocytes # (A) 1.4 k/uL (1.0-4.8); Lymphocytes % (A) 17 %; MCH 30.6 pg (25.0-35.0); MCHC 33.7 g/dL (31.0-37.0); MCV 90.8 fL (80.0-100.0); Mean Platelet Volume 8.3; Monocytes # (A) 0.5 k/uL (0-1.0); Monocytes % (A) 6 %; Neutrophils # (A) 5.9 k/uL (1.3-7.7); Neutrophils % (A) 71 %; Platelet Count 171 k/uL (150-450); RBC 5.21 m/uL (4.30-5.90); RDW 12.6 % (11.5-15.5); WBC 8.4 k/uL (3.8-10.6)
[2022-05-08 06:15] LABS: Partial Thromboplastin Time 37.3 sec (22.0-30.0); Prothrombin Time 10.9 sec (9.0-12.0)
[2022-05-08 06:27] LABS: African American GFR (CKD) >90 (>60 ml/min/1.73 sqM); Anion Gap 8 mmol/L; Blood Urea Nitrogen 13 mg/dL (9-20); Carbon Dioxide 25 mmol/L (22-30); Chloride 105 mmol/L (98-107); Glucose 138 mg/dL (74-99); Non-African American GFR(CKD) >90 (>60 ml/min/1.73 sqM); Potassium 4.4 mmol/L (3.5-5.1); Sodium 138 mmol/L (137-145)
[2022-05-08] MEDS ORDERED: PANTOPRAZOLE 40 MG TABLET PO SCH (07:30)
[2022-05-08 07:42] VITALS: TEMP 97.9
[2022-05-08] MEDS ORDERED: METOPROLOL SUCCINATE (ER) 25 MG TAB.ER.24H PO SCH (09:00)
[2022-05-08] MEDS ORDERED: ASPIRIN 325 MG TAB PO SCH (09:00)
[2022-05-08] MEDS ORDERED: TRIAMTERENE-HCTZ 37.5-25MG 1 EACH TAB PO SCH (09:00)
[2022-05-08] MEDS ORDERED: ASPIRIN 325 MG TAB PO STA (09:06)
[2022-05-08] MEDS ORDERED: ALPRAZolam 0.25 MG TAB PO PRN (09:06)
[2022-05-08] MEDS ORDERED: ALPRAZolam 0.5 MG TAB PO PRN (09:06)
[2022-05-08] MEDS ORDERED: SODIUM CHLORIDE 0.9% 1,000 ML in EMPTY BAG 1 BAG IV SCH (09:15)
[2022-05-08] MEDS ORDERED: MIDAZOLAM 2 MG/2 ML VIAL IVP ONE (10:15)
--- NOTE | 2022-05-08 10:22 | P.PN ---
Subjective This is a pleasant 56-year-old male past medical history significant for coronary artery disease in setting of CT in 2019 and underwent stenting of the distal RCA by Dr. Marquis at [facility], hypertension, hyperlipidemia, total knee arthroplasty, type 2 diabetes. He follows in the office with Dr. Mcrae. We have been asked to see in consultation for SVT. Patient presents emergency department with complaints of sudden onset shortness of breath and chest pain. He states that he was sitting at his computer and had sudden onset of shortness of breath and chest pain, he started to have symptoms of lightheadedness. His took his blood pressure numbers heart rate to be very fast. On presentation to the emergency department patient was found to be in SVT with a heart rate of 184. He was given 6 mg of IV adenosine converted back into sinus mechanism. He denies any chest pain currently. She denies any shortness of breath, lightheadedness, dizziness, syncope or near syncope. No further arrhythmia on telemetry. Denies any history of arrhythmia or SVT, CVA, seizure, lung disease. 05/08/2022 Patient seen and examined at bedside, no distress. He denies any chest pain or shortness of breath. No further arrhythmia. No further SVT noted. Echocardiogram revealed normal ejection fraction, no significant wall motion or valvular abnormalities. Troponin increased to 0.12. BUN 13, serum creatinine 0.74 PHYSICAL EXAMINATION Vitals reviewed CONSTITUTIONAL: No apparent distress. HEENT: Head is normocephalic. Pupils are equal, round. Sclerae anicteric. Mucous membranes of the mouth are moist. No JVD. No carotid bruit. CHEST EXAMINATION: Lungs are clear to auscultation. No chest wall tenderness is noted on palpation or with deep breathing. HEART EXAMINATION: Regular rate and rhythm. S1, S2 heard. No murmurs, gallops or rub. ABDOMEN: Soft, nontender. Positive bowel sounds. EXTREMITIES: 2+ peripheral pulses, no lower extremity edema and no calf tenderness. NEUROLOGIC EXAMINATION: Patient is awake, alert and oriented x3. ASSESSMENT SVT Elevated troponin, rule out ischemia Coronary artery disease in setting of CT in 2019 and underwent stenting of the distal RCA by Dr. Marquis at [facility] Hypertension Hyperlipidemia Type 2 diabetes PLAN Plan for cardiac catheterization with Dr. Pierre today, patient agreeable I have discussed the risks, benefits and alternative therapies for the above- mentioned procedure and for both sedation/analgesia as well as necessary blood product administration, if indicated, as they pertain to this patient. The patient has indicated understanding and acceptance of the risks and procedures discussed. Questions have been answered appropriately and he is agreeable to mo ve forward with the above-stated procedure. Continue aspirin, statin, beta juany If cardiac catheterization with no significant CAD, no further inpatient workup at this time and patient can be discharged. Recommend follow up with Dr. Mcrae in 1 week. Nurse practitioner note has been reviewed by physician. Signing provider agrees with the documented findings, assessment, and plan of care. Objective - Vital Signs Vital signs: Vital Signs Temp 97.9 F 05/08/22 07:00 Pulse 56 L 05/08/22 09:50 Resp 18 05/08/22 09:50 BP 139/99 05/08/22 09:50 Pulse Ox 97 05/08/22 09:50 FiO2 Intake & Output 05/07/22 05/08/22 05/08/22 18:59 06:59 18:59 Intake Total 830 154.333 Balance 830 154.333 Weight 104.326 kg Intake: Intake, IV Titration 30 154.333 Amount Heparin Sod,Pork in 0.45% 30 154.333 NaCl 25,000 unit In 0.45 % NaCl 1 250ml.bag @ 9. 585 UNITS/KG/HR 10 mls/hr IV .Q24H [facility] Rx#: [id number] Oral 800 Other: Voiding Method Toilet # Voids 2 2 # Bowel Movements 1 - Labs CBC & Chem 7: 05/08/22 05:08 05/08/22 05:08 Labs: Abnormal Lab Results - Last 24 Hours (Table) 05/07/22 05/07/22 05/07/22 Range/Units 11:34 14:31 19:46 APTT 44.3 H (22.0-30.0) sec Glucose (74-99) mg/dL Troponin I 0.087 H* 0.121 H* (0.000-0.034) ng/mL 05/08/22 05/08/22 Range/Units 05:08 05:08 APTT 37.3 H (22.0-30.0) sec Glucose 138 H (74-99) mg/dL Troponin I (0.000-0.034) ng/mL
[2022-05-08] MEDS ORDERED: LIDOCAINE 1% INJ 10MG/ML (30 ML VIAL-PF) SQ ONE (10:25)
[2022-05-08] MEDS ORDERED: SODIUM CHLORIDE 0.9% 1,000 ML IV ONE (10:26)
[2022-05-08] MEDS ORDERED: IOPAMIDOL-370 100ML BTL INJ ONE (10:46)
[2022-05-08] MEDS ORDERED: RX INFO: IV CONTRAST WAS GIVEN 1 EACH MISC MISCELLANE PRN (10:49)
--- NOTE | 2022-05-08 10:51 | P.PCN ---
Date of Procedure: 05/08/22 Operative Findings: CARDIAC CATHETERIZATION PERFORMING PHYSICIAN: Sin Pierre MD, RPVI PROCEDURE PERFORMED: 1. Selective right and left coronary angiogram 2. Left heart catheterization INDICATION: Acute non-ST patient myocardial infarction COMPLICATION: None APPROACH: Right radial artery LEVEL OF SEDATION: Moderate with a sedation length of 18 minutes PROCEDURE DESCRIPTION: After obtaining an informed consent, the patient was brought to cardiac labor relations teacher. Local anesthesia was performed using lidocaine subcutaneously. The right radial artery was cannulated using Seldinger technique, the guidewire passed easily, following that we advanced a 5-Jordanian sheath dilator assembly, the wire and dilator were removed and sheath was flushed. Following that, 2 mg of verapamil along with 5000 unit heparin were given. Selective right and left coronary angiogram using a 6-Jordanian JR4 and JL 3.5 catheters. Following that we did left heart catheterization using 6-Jordanian pigtail catheter. The procedure was completed there was no complication. SELECTIVE CORONARY ANGIOGRAM: The right coronary artery: Large caliber vessel and is vessel. The RCA is angiographically normal. The RCA stented distally and the stent appeared to be patent Left main: Angiographically normal. Bifurcates into an ulcer excellent and LAD The left circumflex: Large caliber vessel nondominant vessel and appears to be angiographically normal. Gives rises into a large OM branch which appeared to be angiographically normal The left anterior descending artery: Large caliber vessel. The LAD is angiographically normal and gives rise into a large diagonal branch which seems to be angiographically normal. The LAD does not reach the apex HEMODYNAMICS: The LVEDP was 6 mmHg was no significant gradient across aortic valve CONCLUSION: 1. Patent stent in the distal right coronary artery 2. Normal left coronary system POSTPROCEDURE MANAGEMENT: Medical treatment
[2022-05-08] MEDS ORDERED: SODIUM CHLORIDE 0.9% 1,000 ML IV SCH (11:00)
[2022-05-08 11:04] LABS: Chol/HDL Ratio 2.82 Ratio; LDL Cholesterol,Calculated 49.2 mg/dL (0.0-131.0)
[2022-05-08 14:02] VITALS: BP 131/92; PULSE 67; RESP 16
[2022-05-09] MEDS ORDERED: HEPARIN SODIUM,PORCINE 2,500 UNIT in SODIUM CHLORIDE 0.9% 250 ML IRRIGATION PRN (07:00)
[2022-05-09] MEDS ORDERED: HEPARIN SODIUM,PORCINE 10,000 UNIT in SODIUM CHLORIDE 0.9% 1,000 ML IRRIGATION PRN (07:00)
--- NOTE | 2022-05-17 08:41 | P.HPIM ---
History of Present Illness H&P Date: 05/08/22 Chief Complaint: Bilateral chest pain History and Physical and Discharge Summary: This is a pleasant 56-year-old gentleman with past medical history of diabetes mellitus, gastroesophageal reflux disease, hypertension, hyperlipidemia, OK, osteoarthritis, postoperative nausea and vomiting, prior history of chewing tobacco-last used every 2018 and multiple other medical issues presented to the ER with complaints of by lateral chest tightness/pressure accompanied by shortness of breath, while sitting at his computer. While at home attempted to obtain his blood pressure readings 3 times each time reading "Error". Denies any relation to food, denies stressors. Also reported symptoms of lightheadedness. On arrival to the ER patient was discovered to be in SVT, heart rate 184, received adenosine and converted back to sinus. Troponins less than 0.012, 0.087, 0.121. Echo reported normal LV function. Currently denies any chest pain, palpitations or shortness of breath. No further arrhythmia. Anticoagulated on heparin drip. Evaluated by cardiology and patient is scheduled for cardiac catheterization. Review of Systems ROS Statement: Those systems with pertinent positive or pertinent negative responses have been documented in the HPI. ROS Other: All systems not noted in ROS Statement are negative. Past Medical History Past Medical History: Diabetes Mellitus, GERD/Reflux, Hyperlipidemia, Hypertension, Myocardial Infarction (OK), Osteoarthritis (OA) Additional Past Medical History / Comment(s): BPH,PreDiabetes Last Myocardial Infarction Date:: 01/27/19 History of Any Multi-Drug Resistant Organisms: None Reported Past Surgical History: Cholecystectomy, Heart Catheterization With Stent, Joint Replacement Additional Past Surgical History / Comment(s): yadira knee replacement Past Anesthesia/Blood Transfusion Reactions: Postoperative Nausea & Vomiting (PONV) Additional Past Anesthesia/Blood Transfusion Reaction / Comment(s): no hx blood transfusion Date of Last Stent Placement:: 01/27/19 Past Psychological History: No Psychological Hx Reported Smoking Status: Never smoker Past Alcohol Use History: Rare Past Drug Use History: None Reported - Past Family History Mother Family Medical History: Cancer Father Family Medical History: Cancer Additional Family Medical History / Comment(s): stomach cancer Medications and Allergies Home Medications Medication Instructions Recorded Confirmed Type Atorvastatin Calcium [Lipitor] 80 mg PO HS 06/15/19 05/07/22 History Omeprazole [PriLOSEC] 20 mg PO AC-BRKFST 06/15/19 05/07/22 History amLODIPine BESYLATE/BENAZEPRIL 1 cap PO DAILY 06/15/19 05/07/22 History [Lotrel 10-40 MG] Ezetimibe [Zetia] 10 mg PO HS 04/01/20 05/07/22 History Metoprolol Succinate (ER) [Toprol 25 mg PO DAILY 04/01/20 05/07/22 History Xl] Tamsulosin HCl [Flomax] 0.4 mg PO HS 04/01/20 05/07/22 History metFORMIN HCL [Glucophage] 500 mg PO AC-BID 04/01/20 05/07/22 History Ibuprofen [Motrin] 800 mg PO Q8H PRN 05/24/20 05/07/22 History Aspirin [Adult Low Dose Aspirin EC] 81 mg PO HS 05/07/22 05/07/22 History Triamterene/Hydrochlorothiazid 1 tab PO DAILY 05/07/22 05/07/22 History [Triamterene-Hctz 37.5-25 mg Tb] Allergies Allergy/AdvReac Type Severity Reaction Status Date / Time No Known Allergies Allergy Verified 05/07/22 09:17 Physical Exam Vitals: Vital Signs Temp Pulse Pulse Pulse Pulse Resp BP 05/08/22 13:00 67 16 05/08/22 12:26 57 L 18 05/08/22 11:56 73 18 05/08/22 11:41 64 18 05/08/22 11:26 64 18 05/08/22 11:11 62 18 05/08/22 11:10 18 05/08/22 10:56 60 52 L 16 05/08/22 09:50 56 L 18 139/99 05/08/22 07:00 97.9 F 63 20 119/79 05/08/22 04:00 97.8 F 60 19 05/07/22 23:31 62 19 05/07/22 20:00 98.0 F 60 19 05/07/22 15:01 72 14 BP Pulse Ox 05/08/22 13:00 131/92 95 05/08/22 12:26 134/93 94 L 05/08/22 11:56 138/93 94 L 05/08/22 11:41 141/100 94 L 05/08/22 11:26 132/96 93 L 05/08/22 11:11 128/92 93 L 05/08/22 11:10 94 L 05/08/22 10:56 132/96 92 L 05/08/22 09:50 97 05/08/22 07:00 95 05/08/22 04:00 141/109 95 05/07/22 23:31 114/77 96 05/07/22 20:00 137/101 93 L 05/07/22 15:01 122/91 96 Intake and Output 05/07/22 05/08/22 05/08/22 22:59 06:59 14:59 Intake Total 898.5 85.833 450 Balance 898.5 85.833 450 Intake: IV 450 Intake, IV Titration 98.5 85.833 Amount Heparin Sod,Pork in 0.45% 98.5 85.833 NaCl 25,000 unit In 0.45 % NaCl 1 250ml.bag @ 9. 585 UNITS/KG/HR 10 mls/hr IV .Q24H [facility] Rx#: [id number] Oral 800 Other: Voiding Method Toilet Toilet # Voids 2 2 1 # Bowel Movements 1 PHYSICAL EXAM: VITAL SIGNS: [As above] GENERAL: Sitting up on stretcher, no acute distress HEENT: Conjunctivae normal. eyes normal. NECK: No JVD. No thyroid enlargement. No LNs CARDIOVASCULAR: S1, S2 regular.. No murmur RESPIRATION: Breath sounds diminished in the bases. No rhonchi or crackles. No bronchial breathing. ABDOMEN: Soft, nontender . No guarding. no masses palpable. No ascites, No hepatosplenomegaly.Bowel sounds heard. LEGS: No edema. no swelling. PSYCHIATRY: Alert and oriented X3, mood and affect normal. NERVOUS SYSTEM: Cranial N 2-12 grossly normal. No focal deficits. Strength and sensation grossly intact. Skin: Warm and dry, no rash Results CBC & Chem 7: 05/08/22 05:08 05/08/22 05:08 Labs: Abnormal Lab Results - Last 24 Hours (Table) 05/07/22 05/07/22 05/08/22 Range/Units 14:31 19:46 05:08 APTT 44.3 H (22.0-30.0) sec Glucose 138 H (74-99) mg/dL Troponin I 0.121 H* (0.000-0.034) ng/mL HDL Cholesterol 38.60 L (40.00-60.00) mg/dL 05/08/22 Range/Units 05:08 APTT 37.3 H (22.0-30.0) sec Glucose (74-99) mg/dL Troponin I (0.000-0.034) ng/mL HDL Cholesterol (40.00-60.00) mg/dL Thrombosis Risk Factor Assmnt - Choose All That Apply Each Factor Represents 1 point: Age 41-60 years, Obesity (BMI >25) Other Risk Factors: No Other congenital or acquired thrombophilia - If yes, enter type in comment: No Thrombosis Risk Factor Assessment Total Risk Factor Score: 2 Thrombosis Risk Factor Assessment Level: Low Risk Assessment and Plan Assessment: SVT Elevated troponins, rule out ischemia, cardiac cath pending CAD with history of OK Hypertension Hyperlipidemia Diabetes mellitus type 2 Prior nicotine use, chewed tobacco-last used 07/22 Plan: Continue on current medication regime ,monitoring and symptomatic treatment. Anticoagulation with heparin drip.NPO, scheduled for cardiac catheterization today. Patient will be discharged today, pending cardiac catheterization, final DC recommendations and clearance per cardiology. Current DC med list prior to cardiac catheterization: Discharge Medication List Atorvastatin Calcium [Lipitor] 80 mg PO HS 06/15/19 [History] Omeprazole [PriLOSEC] 20 mg PO AC-BRKFST 06/15/19 [History] amLODIPine BESYLATE/BENAZEPRIL [Lotrel 10-40 MG] 1 cap PO DAILY 06/15/19 [History] Ezetimibe [Zetia] 10 mg PO HS 04/01/20 [History] Metoprolol Succinate (ER) [Toprol Xl] 25 mg PO DAILY 04/01/20 [History] Tamsulosin HCl [Flomax] 0.4 mg PO HS 04/01/20 [History] metFORMIN HCL [Glucophage] 500 mg PO AC-BID 04/01/20 [History] Ibuprofen [Motrin] 800 mg PO Q8H PRN 05/24/20 [History] Aspirin [Adult Low Dose Aspirin EC] 81 mg PO HS 05/07/22 [History] Triamterene/Hydrochlorothiazid [Triamterene-Hctz 37.5-25 mg Tb] 1 tab PO DAILY 05/07/22 [History] The impression and plan of care has been dictated as directed. : I performed a history and examination of this patient, discussed the same with the dictator. I agree with the dictator's note ,documented as a scribe. Any additional findings or plans will be noted.
== END 2022-05-08 14:21 | disposition home or self-care (01) | DRG 287 ==
LOC: EC 08:01 → 3SCARD 09:25
PROVIDERS: ADMIT Family Medicine; ATTEND Family Medicine
PROC: B2111ZZ Fluoroscopy of Multiple Coronary Arteries using Low Osmolar Contrast (ICD-10-PCS; 2022-05-08)
PROC: 4A023N7 Measurement of Cardiac Sampling and Pressure, Left Heart, Percutaneous Approach (ICD-10-PCS; principal; 2022-05-08 13:15)
DX: I47.1 Supraventricular tachycardia (principal); R79.89 Other specified abnormal findings of blood chemistry; I25.10 Atherosclerotic heart disease of native coronary artery without angina pectoris; Z96.653 Presence of artificial knee joint, bilateral; I34.0 Nonrheumatic mitral (valve) insufficiency; M19.90 Unspecified osteoarthritis, unspecified site; K21.9 Gastro-esophageal reflux disease without esophagitis; E11.9 Type 2 diabetes mellitus without complications; E78.5 Hyperlipidemia, unspecified; I10 Essential (primary) hypertension; I25.2 Old myocardial infarction; I45.10 Unspecified right bundle-branch block; N40.0 Benign prostatic hyperplasia without lower urinary tract symptoms; Z79.82 Long term (current) use of aspirin; Z79.84 Long term (current) use of oral hypoglycemic drugs; Z79.899 Other long term (current) drug therapy; Z90.49 Acquired absence of other specified parts of digestive tract
CPT/HCPCS: 36415; 71046; 80048; 80053; 80061; 83735; 84443; 84484; 85025; 85610; 85730; 93005; 93306; 93458; 96361; 96365; 96366; 96375; 99291

== ENCOUNTER 2022-06-26 05:56 | Day surgery (SDC) | payer BC ==
[2022-06-26] MEDS ORDERED: SODIUM CHLORIDE 0.9% 1,000 ML IV SCH (05:59)
[2022-06-26 06:24] LABS: Glucose,Whole Blood 140 mg/dL (70-110)
[2022-06-26] MEDS ORDERED: fentaNYL (PF) 50 MCG/ML 2 ML AMP ONE (07:20)
[2022-06-26] MEDS ORDERED: LIDOCAINE 2% INJ 20 MG/ML (2 ML VIAL) ONE (07:20)
[2022-06-26] MEDS ORDERED: ISOPROTERENOL 250 MCG/1.25 ML SYR IV ONE (07:20)
[2022-06-26] MEDS ORDERED: METOPROLOL TARTRATE 5 MG/5 ML VIAL IVP ONE (07:20)
[2022-06-26] MEDS ORDERED: PROPOFOL 10 MG/ML 20 ML VIAL IV ONE (07:20)
[2022-06-26] MEDS ORDERED: MIDAZOLAM 2 MG/2 ML VIAL ONE (07:20)
[2022-06-26] MEDS ORDERED: LIDOCAINE 1% INJ 10MG/ML (30 ML VIAL-PF) SQ ONE (07:55)
[2022-06-26] MEDS ORDERED: ADENOSINE 3 MG/ML 4 ML VIAL ONE ×2 (09:14→09:20)
[2022-06-26] MEDS: ADENOSINE 3 MG/ML 4 ML VIAL IV ONE ×2 (09:20→09:25)
[2022-06-26 09:57] LABS: HCT 42.4 % (39.0-53.0); HGB 14.4 gm/dL (13.0-17.5); MCH 30.8 pg (25.0-35.0); MCV 90.4 fL (80.0-100.0); Mean Platelet Volume 7.8; Platelet Count 194 k/uL (150-450); RBC 4.69 m/uL (4.30-5.90); RDW 13.1 % (11.5-15.5); WBC 8.6 k/uL (3.8-10.6)
--- NOTE | 2022-06-26 13:44 | P.EPPROC ---
- EP Procedure Note Electrophysiology Procedure Note: Diagnosis Recurrent SVT, symptomatic Adenosine sensitive Final diagnosis Normal sinus node function Normal AV node function without any clear-cut slow pathway conduction No echo beats No evidence of accessory pathway conduction No inducible arrhythmias on and off Isuprel as well as following low dose adenosine No ablation performed Details Patient was brought to the EP lab in a fasting state. Written informed consent was obtained prior to the procedure. The right groin was prepped and draped as a protocol and venous sheaths were placed in the left femoral veins Via this, diagnostic catheters placed in the high right atrium His bundle area coronary sinus and RV septum Baseline measurements are as follows sinus cycle length 847 ms, WI interval 129 ms, QRS 157 ms right bundle branch block pattern and QT interval 401 ms AH interval 69 ms and HV interval 43 ms Sinus recovery times at 600, 500 and 400 ms were 1261, 1196 and 877 ms AV node Wenckebach block 330 ms No slow pathway conduction noted in the baseline state VA Wenckebach block 300 ms Parahisian pacing performed. Tera response noted Extra stimulation was performed from the coronary sinus and from the right ventricle. No SVT induced High dose Isuprel used initially. Later dropped down to 2 mics. Subsequently used even at 5 mics Subtle evidence of slow pathway conduction at 290 ms during straight pacing with A-V block noted to 60 ms No SVT induced no echo beats induced AV node Wenckebach block from the coronary sinus 240 ms Burst stimulation the high right atrium performed no arrhythmias induced Ventricular extra stimulation was performed no SVT induced Isuprel was turned off and extra stimulation was performed during the Isuprel withdrawal. After triple extra stimuli from the high right atrium coronary sinus and from the ventricles No SVT was induced 3 mg of Isuprel given and straight pacing performed from the high right atrium. No SVT induced Isuprel briefly started once again in 6 mg of adenosine given No inducible SVT As time went on there was less and less evidence of slow pathway conduction All sheaths removed. Vascular closure device applied
[2022-06-26] MEDS ORDERED: ACETAMINOPHEN TAB 325 MG TAB PO PRN (13:46)
[2022-06-26] MEDS ORDERED: ACETAMINOPHEN IV (For NPO) 1,000 MG in EMPTY BAG 1 BAG IVPB ONE (15:00)
[2022-06-26 15:22] VITALS: RESP 16; TEMP 97.7
[2022-06-26] MEDS ORDERED: metFORMIN 500 MG TAB PO SCH (17:30)
[2022-06-26 17:31] VITALS: BP 126/85; PULSE 63
[2022-06-26] MEDS ORDERED: TAMSULOSIN 0.4 MG CAP.ER.24H PO SCH (21:00)
[2022-06-26] MEDS ORDERED: EZETIMIBE 10 MG TAB PO SCH (21:00)
[2022-06-26] MEDS ORDERED: ATORVASTATIN 80 MG TAB PO SCH (21:00)
[2022-06-26] MEDS ORDERED: ASPIRIN 81 MG PO SCH (21:00)
[2022-06-27] MEDS ORDERED: PANTOPRAZOLE 40 MG TABLET PO SCH (07:30)
[2022-06-27] MEDS ORDERED: TRIAMTERENE-HCTZ 37.5-25MG 1 EACH TAB PO SCH (09:00)
[2022-06-27] MEDS ORDERED: amLODIPine 10 MG TAB PO SCH (09:00)
[2022-06-27] MEDS ORDERED: METOPROLOL SUCCINATE (ER) 25 MG TAB.ER.24H PO SCH (09:00)
[2022-06-27] MEDS ORDERED: lisinopriL 20 MG TAB PO SCH (09:00)
== END 2022-06-26 18:38 | disposition home or self-care (01) ==
LOC: CATHEP 05:56 → 6NMEDSUR 10:00 → CATHEP 18:38
PROVIDERS: ATTEND Internal Medicine Clinical Cardiac Electrophysiology
DX: I47.1 Supraventricular tachycardia (principal); I45.10 Unspecified right bundle-branch block; I25.2 Old myocardial infarction; I10 Essential (primary) hypertension; E78.5 Hyperlipidemia, unspecified; E11.9 Type 2 diabetes mellitus without complications; M19.90 Unspecified osteoarthritis, unspecified site; K21.9 Gastro-esophageal reflux disease without esophagitis; Z79.02 Long term (current) use of antithrombotics/antiplatelets; Z79.84 Long term (current) use of oral hypoglycemic drugs; Z79.82 Long term (current) use of aspirin; Z79.811 Long term (current) use of aromatase inhibitors; Z79.891 Long term (current) use of opiate analgesic; Z79.899 Other long term (current) drug therapy; Z96.653 Presence of artificial knee joint, bilateral; Z90.49 Acquired absence of other specified parts of digestive tract; Z98.62 Peripheral vascular angioplasty status; Z98.890 Other specified postprocedural states
CPT/HCPCS: 85027; 93653; J2001; J0153; J0131; 93620; 93623

== ENCOUNTER → 2024-03-04 | Outpatient (CLI) | payer BC ==
[2024-03-04 11:42] LABS: Partial Thromboplastin Time 23.8 sec (22.0-30.0); Prothrombin Time 11.1 sec (10.0-12.5)
[2024-03-04 16:41] LABS: HCT 48.2 % (39.6-50.0); MCH 30.8 pg (27.0-32.0); MCHC 33.2 g/dL (32.0-37.0); MCV 92.7 FL (80.0-97.0); NRBC Per 100 WBC 0 X 10*3/uL (0.00-0.01); Platelet Count 336 X 10*3/uL (140-440); RDW 12.9 % (11.5-14.5)
[2024-03-04 16:54] LABS: ALT 28 U/L (10-49); AST 21 U/L (14-35); Albumin 4.2 g/dL (3.8-4.9); Albumin/Globulin Ratio 1.62 Ratio (1.60-3.17); Alkaline Phosphatase 78 U/L (41-126); BUN/Creat Ratio 19.09 Ratio (12.00-20.00); Calcium 9.4 mg/dL (8.7-10.3); Carbon Dioxide 26.9 mmol/L (21.6-31.8); Chloride 102 mmol/L (96-109); Globulin 2.6 g/dL (1.6-3.3); Glucose 113 mg/dL (70-110); Potassium 5.3 mmol/L (3.5-5.5); Sodium 139 mmol/L (135-145); Total Bilirubin 0.7 mg/dL (0.3-1.2); Total Protein 6.8 g/dL (6.2-8.2)
== END | disposition home or self-care (01) ==
LOC: LABPAT 10:27
PROVIDERS: ATTEND Orthopaedic Surgery
DX: Z01.818 Encounter for other preprocedural examination
CPT/HCPCS: 80053; 85027; 85610; 85730; 87070

== ENCOUNTER 2024-03-24 11:10 | Inpatient (IN) | payer BC ==
[~2024-03-24 11:10] MED LIST changes: -ACETAMINOPHEN TAB 500 MG TAB PO ONE; -DEXAMETHASONE SOD PHOSPHATE 4 MG/ML 1 ML VIAL IV ONE; -GABAPENTIN 300 MG CAP PO ONE; -HYDROcodone/APAP 5-325MG 1 EACH TAB PO PRN; +HYDROcodone/APAP 7.5-325MG 1 EACH TAB PO PRN; -HYDROmorphone 1 MG/ML 1 ML SYRINGE IVP PRN; +LIDOCAINE 1% (10MG/ML) FOR IV START INTRADERMA PRN; -MAGNESIUM HYDROXIDE 2,400 MG/10 ML CUP PO PRN; +MAGNESIUM HYDROXIDE 2,400 MG/30 ML CUP PO PRN; -MELOXICAM 7.5 MG TAB PO ONE; -MIDAZOLAM 2 MG/2 ML VIAL IV PRN; -ONDANSETRON 4 MG/2 ML VIAL IVP ONE; -ROPIVACAINE 246.25 MG, EPINEPHrine 0.5 MG, KETOROLAC 30 MG, cloNIDine HCL/PF 80 MCG, WA... MISCELLANE ONE; -SCOPOLAMINE 1.5MG/72HR PATCH TRANSDERM ONE; +TRANEXAMIC 1,000 MG/100ML-NACL 1,000 MG in SALINE 1 100ML.BAG IVPB PRN; -TRANEXAMIC ACID 1,000 MG in SODIUM CHLORIDE 0.9% 100 ML IVPB ONE; -diazePAM 5 MG TAB PO PRN; +fentaNYL (PF) 50 MCG/ML 2 ML AMP IV PRN; +fentaNYL (PF) 50 MCG/ML 2 ML AMP IVP PRN; -hydrOXYzine pamoate 25 MG CAP PO PRN
[2024-03-24] MEDS: IV FLUID CONTINUATION 1,000 ML IV ONE (13:02)
[2024-03-24] MEDS: ACETAMINOPHEN TAB 500 MG TAB PO PRN (13:16)
[2024-03-24] MEDS: GABAPENTIN 300 MG CAP PO PRN (13:17)
[2024-03-24] MEDS: MELOXICAM 7.5 MG TAB PO PRN (13:17)
[2024-03-24 13:25] LABS: Glucose,Whole Blood 105 mg/dL (70-110)
[2024-03-24] MEDS: DEXAMETHASONE SOD PHOSPHATE 4 MG/ML 1 ML VIAL IV ONE (13:28)
[2024-03-24] MEDS: MIDAZOLAM 2 MG/2 ML VIAL IV PRN (13:28)
[2024-03-24] MEDS: FAMOTIDINE 20 MG/2 ML VIAL IV STA (13:29)
[2024-03-24] MEDS: ONDANSETRON 4 MG/2 ML VIAL IVP ONE (13:29)
--- NOTE | 2024-03-24 13:49 | P.ANPRN ---
Procedure Note - Anesthesia - Nerve Block Performed Right [place] Single Time Out Performed: Yes Date of Procedure: 03/24/24 Procedure Start Time: 13:35 Procedure Stop Time: 13:39 Location of Patient: PreOp Indication: Acute Post-Operative Pain, Analgesia, Requested by Surgeon Sedation Type: Sedate with meaningful contact maintained Preparation: Sterile Prep Position: Left Lateral Catheter: None Needle Types: Pajunk Needle Gauge: 21 Ultrasound used to visualize needle placement: Yes Ultrasound used to observe medication spread: Yes Injectate: 0.5% Ropivacaine (see comment for volume) (Ropiv 20ml+[id number]) Blood Aspirated: No Pain Paresthesia on Injection Noted: No Resistance on Injection: Normal Image Stored and Saved: Yes Events: Uneventful and Well Tolerated
--- NOTE | 2024-03-24 13:51 | P.ANPRN ---
Procedure Note - Anesthesia - Nerve Block Performed Right Adductor Canal Infusion Time Out Performed: Yes Date of Procedure: 03/24/24 Procedure Start Time: 13:39 Procedure Stop Time: 13:44 Location of Patient: PreOp Indication: Acute Post-Operative Pain, Analgesia, Requested by Surgeon Sedation Type: Sedate with meaningful contact maintained Preparation: Sterile Prep Position: Supine Catheter: Indwelling Needle Types: On-Q Ultrasound used to visualize needle placement: Yes Ultrasound used to observe medication spread: Yes Injectate: 0.5% Ropivacaine (see comment for volume) ([id number]+Decadron 4mg) Blood Aspirated: No Pain Paresthesia on Injection Noted: No Resistance on Injection: Normal Image Stored and Saved: Yes Events: Uneventful and Well Tolerated
[2024-03-24] MEDS ORDERED: MIDAZOLAM 2 MG/2 ML VIAL ONE (14:33)
[2024-03-24] MEDS ORDERED: PHENYLEPHRINE-0.9% NACL SYG 1,000 MCG/10 ML SYRINGE ONE (14:33)
[2024-03-24] MEDS ORDERED: ROPIVACAINE 5 MG/ML 30 ML VIAL ONE (14:33)
[2024-03-24] MEDS ORDERED: TRANEXAMIC 1,000 MG/100ML-NACL PREMIX BAG ONE (14:33)
[2024-03-24] MEDS ORDERED: DEXAMETHASONE SOD PHOSPHATE 4 MG/ML 1 ML VIAL ONE (14:33)
[2024-03-24] MEDS ORDERED: fentaNYL (PF) 50 MCG/ML 2 ML AMP ONE (14:33)
[2024-03-24] MEDS ORDERED: PROPOFOL 10 MG/ML 20 ML VIAL IV ONE (14:33)
[2024-03-24] MEDS: ceFAZolin 1,000 MG in SODIUM CHLORIDE 0.9% 1,000 ML IRRIGATION ONE (15:00)
[2024-03-24] MEDS: LACTATED RINGERS 1,000 ML IV ONE (15:26)
--- NOTE | 2024-03-24 16:29 | P.OP ---
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 Procedure(s) Performed: Revision right total knee arthroplasty Implants: [employer] Oxinium constrained femoral component size 5, right [employer] press-fit stem, straight 13 mm x 160 mm [employer] Legion 10 mm distal, 5 mm posterior L wedge x 2 [employer] legion revision tibial baseplate size 5, right [employer] Legion 5 mm tibial wedge x 2 [employer] press-fit stem, straight 13 mm x 160 mm [employer] Mattie II constrained articular insert size 5-6, 18 mm All components were cemented using Simplex P bone cement with Tobramycin x 2. The articulation is Oxinium on polyethylene. Anesthesia: spinal Surgeon: Quinn Swartz Cable Driller #1: Do Ace Estimated Blood Loss (ml): 100 Pathology: other (Cultures x 2) Condition: stable Disposition: PACU Indications for Procedure: This is a 58-year-old gentleman has had a right total knee arthroplasty [place] [address] Ortiz. He subsequently had a revision of his femoral component on 04/05/2020 secondary to her fracture of the component. Continues to have significant instability of his knee and conservative management has failed. The operation of revision knee replacement has been discussed at length in the office, as well as potential risks and complications. These are inclusive of, but not limited to: Infection, bleeding, scarring, discomfort, stiffness, blood vessel and nerve damage, need for further surgery, failure to relieve symptoms, persistence, recurrence, or worsening of problems, loosening, dislocation, wear, blood clot, pulmonary embolism, , gait dysfunction, stiffness, and other risks as discussed in the office. Patient elects to proceed and the consent form has been signed. Operative Findings: The operative findings are consistent with loosening of the femoral component right total knee arthroplasty Description of Procedure: Patient was seen in the preoperative area consent was reviewed and operative site was marked with a skin marker. An adductor canal pain catheter was placed by anesthesia in the preoperative area. Patient was then brought to the operating room and given preoperative antibiotics intravenously. A general anesthetic was administered by the anesthesia department. A tourniquet was placed on the upper thigh and the lower extremity was prepped and draped in usual sterile fashion. A gram of transexamic acid was given. A universal timeout was then performed which confirmed the patient's name, surgical site, ALLERGIES, and consent. The lower extremity was then exsanguinated and tourniquet was inflated to 250 mmHg. A standard and anterior midline approach to the knee was performed. The skin and subcutaneous tissue was dissected down to the patellar tendon, with the prior scar being excised. A medial parapatellar arthrotomy was then performed. A moderate amount of clear fluid was encountered, and this was cultured 2. The knee was then extended, the patellar was everted, and the knee was again flexed. The femoral component was found to be grossly loose and was easily removed by hand. The tibial component was easily removed as well. Using a small o scillating saw and osteotome. There is moderate bone loss of the distal femur and posterior tibia. Attention was redirected to the femur. Sequential reaming of the femoral canal was performed until good cortical fit. The distal cutting guide was then placed over the reamer the distal femur cut was performed. Next the 4-in-1 cutting block was placed over the reamer and the appropriate cuts were performed. The cutting block and reamer were then removed and the femoral trial was placed. The bone was then removed for the box. Femoral trial was then removed. Attention was then redirected to the tibia. Sequential reaming of the tibial canal was performed until good cortical fit. The intramedullary proximal tibial cutting guide was then placed over the reamer, the proximal tibia was cut. The tibia was sized. The proximal tibia was then prepared. Trials were then placed with the appropriate-sized constrained liner. The knee was able to fully extend and flex to 120 and was stable throughout all range of motion. Trials were then removed. The cut surfaces of bone were then irrigated with pulsatile lavage. The knee was also irrigated with Irrisept solution. The components were then opened, the cement was mixed, and the components were then cemented in place. The cement was allowed to harden with the knee in full extension. After the cemented hardened. The tourniquet was released, and hemostasis was obtained. A second gram of transexamic acid was given. The knee was again irrigated. The knee was again taken through range of motion and found to be stable throughout all range of motion of 0-120. The fascia was then closed with #2 strata fix suture. The subcutaneous tissue was closed with 3-0 Vicryl and 3-0 strata fix. Exofin glue was used for the skin and placed with the knee in flexion. The patient was placed in a sterile silver dressing. Patient was then transferred to recovery room in stable condition. The training assistant BIANKA Adams was required due the complexity surgery and the need for a skilled surgical scrub technologist. She assisted in positioning, draping, retraction, and closure of the wound.and closure of the wound.
[2024-03-24] MEDS: PHENYLEPHRINE-0.9% NACL SYG 1,000 MCG/10 ML SYRINGE IVP STA (17:19)
[2024-03-24] MEDS: ALBUMIN HUMAN 5% 250 ML in EMPTY BAG 1 BAG IVPB STA (17:21)
[2024-03-24] MEDS: HYDROmorphone 0.5 MG/0.5 ML SYRINGE IVP PRN (17:32)
[2024-03-24] MEDS: ROPIVACAINE 1,100 MG, SODIUM CHLORIDE 0.9% 500 ML 330 ML, EMPTY PAIN BALL 1 EACH MISCELLANE PRN (17:32)
--- NOTE | 2024-03-24 17:39 | XR ---
EXAMINATION TYPE: XR knee limited RT DATE OF EXAM: 03/24/2024 5:32 PM CLINICAL INDICATION: Male, 58 years old with history of Evaluation for Postop abnormality and alignme nt; [facility] COMPARISON: None. TECHNIQUE: XR knee limited RT; examined in Frontal, lateral projections. FINDINGS: Status post total knee arthroplasty revision changes with hardware in appropriate alignme nt and intact. No evidence of fracture. Subcutaneous lucencies and lucencies within the joint consist ent with surgical changes. IMPRESSION: Status post total knee arthroplasty revision changes with hardware intact and appropriate alignment. No fractures identified. [facility], , 03/24/2024 5:37 PM
[2024-03-24] MEDS: LACTATED RINGERS 1,000 ML IV SCH (18:19)
[2024-03-24] MEDS: SODIUM CHLORIDE 0.9% 1,000 ML IV SCH (18:29)
[2024-03-24 20:23] LABS: Glucose,Whole Blood 222 mg/dL (70-110)
[2024-03-24] MEDS: HYDROmorphone 1 MG/ML 1 ML SYRINGE IVP PRN (20:28)
[2024-03-24] MEDS: SENNOSIDES-DOCUSATE SODIUM 1 EACH TAB PO SCH (22:49)
[2024-03-24] MEDS: ASPIRIN 325 MG TAB PO SCH (22:49)
[2024-03-24] MEDS: ALBUTEROL NEBULIZED 2.5 MG/3 ML INHALATION PRN (23:27)
[2024-03-25] MEDS: HYDROcodone/APAP 7.5-325MG 1 EACH TAB PO PRN (01:54)
[2024-03-25 06:23] LABS: Glucose,Whole Blood 214 mg/dL (70-110)
[2024-03-25 07:14] VITALS: BP 126/87; PULSE 71; RESP 18; TEMP 98
[2024-03-25] MEDS ORDERED: ALBUTEROL NEBULIZED 2.5 MG/3 ML INHALATION SCH (08:00)
[2024-03-25] MEDS: amLODIPine 10 MG TAB PO SCH (08:16)
[2024-03-25] MEDS: metFORMIN 500 MG TAB PO SCH (08:17)
[2024-03-25] MEDS: lisinopriL 20 MG TAB PO SCH (08:17)
[2024-03-25] MEDS: TRIAMTERENE-HCTZ 37.5-25MG 1 EACH CAP PO SCH (08:17)
--- NOTE | 2024-03-25 08:31 | P.PN ---
Progress Note - Text Progress Note Date: 03/25/24 Postoperative day # 1 status post total knee arthroplasty, and adductor canal catheter placed for postoperative analgesia, currently at ropivacaine 0.2% 8 mL per hour and continuous infusion, visual analogue scale is 3/10, patient using oral pain medication for breakthrough pain. Assessment and plan= Acute postoperative pain, adductor canal catheter for pain control, pain is well controlled we'll continue the same management.
[2024-03-25 08:44] LABS: Basophils # (A) 0.02 X 10*3/uL (0.00-0.10); Basophils % (A) 0.1 %; Eosinophils # (A) 0.01 X 10*3/uL (0.04-0.35); Eosinophils % (A) 0.1 %; HCT 40.4 % (39.6-50.0); HGB 13.4 g/dL (13.0-17.0); Lymphocytes # (A) 0.54 X 10*3/uL (0.90-5.00); Lymphocytes % (A) 3.8 %; MCH 30.6 pg (27.0-32.0); MCHC 33.2 g/dL (32.0-37.0); MCV 92.2 FL (80.0-97.0); Mean Platelet Volume 10.4 FL (9.5-12.2); Monocytes # (A) 0.57 X 10*3/uL (0.20-1.00); NRBC Per 100 WBC 0 X 10*3/uL (0.00-0.01); Neutrophils # (A) 12.94 X 10*3/uL (1.80-7.70); Neutrophils % (A) 91.5 %; Platelet Count 184 X 10*3/uL (140-440); RBC 4.38 X 10*6/uL (4.40-5.60); RDW 13.1 % (11.5-14.5); WBC 14.15 X 10*3/uL (4.50-10.00)
[2024-03-25 11:28] LABS: Glucose,Whole Blood 209 mg/dL (70-110)
--- NOTE | 2024-03-25 12:11 | P.DS ---
Providers Date of admission: 03/24/24 12:42 Expected date of discharge: 03/25/24 Attending physician: Quinn Swartz Consults: 03/24/24 08:53 Consult Physician Routine Consulting Provider: Haris Pizano Consult Reason/Comments: medical management Do you want consulting provider notified?: Yes Primary care physician: Haris Pizano - Discharge Diagnosis(es) (1) S/P revision of total knee Current Visit: Yes Status: Acute (2) History of revision of total knee arthroplasty Current Visit: Yes Status: Acute (3) Loose right total knee arthroplasty Current Visit: No Status: Acute Hospital Course: This is a 58-year-old male who underwent revision of his right total knee femoral component in 2019. The patient presented for evaluation as an outpatient due to instability of his right knee. After discussion and consideration patient elects to proceed with revision right total knee arthroplasty. The patient is seen preoperatively by Dr. Swartz and medically cleared for surgery by their primary care physician. Patient is admitted to [facility] on 03/24/2024 for revision right total knee arthroplasty. The procedure is performed without complication or sequelae. The patient is doing well postoperatively. Labs and vital signs are stable on day of discharge. On day of discharge patient's knee incision is healing well. There is minimal erythema. There is no drainage noted at this time. There is minimal soft tissue swelling to the knee. Patient has full foot and ankle motion without difficulty or pain. Calf is soft and nontender to palpation. Neurovascular status to the right lower extremity is intact. Patient is discharged home in good condition. Please see med rec for accurate list of home medications. Plan - Discharge Summary Discharge Rx Participant: Yes New Discharge Prescriptions: New Aspirin 325 mg PO BID #60 tab HYDROcodone/APAP 7.5-325MG [[place] 7.5-325] 1 - 2 tab PO Q6H PRN #32 tab PRN Reason: Pain Sennosides [Senokot] 2 tab PO DAILY PRN #60 tablet PRN Reason: Constipation No Action amLODIPine BESYLATE/BENAZEPRIL [Lotrel 10-40 MG] 1 cap PO QAM Omeprazole [PriLOSEC] 20 mg PO QAM Atorvastatin Calcium [Lipitor] 80 mg PO HS metFORMIN HCL [Glucophage] 500 mg PO BID Tamsulosin HCl [Flomax] 0.4 mg PO HS Ezetimibe [Zetia] 10 mg PO HS Metoprolol Succinate (ER) [Toprol XL] 50 mg PO HS Triamterene/Hydrochlorothiazid [Triamterene-Hctz 37.5-25 mg Tb] 1 tab PO QAM Aspirin [Adult Low Dose Aspirin EC] 81 mg PO HS Discharge Medication List Atorvastatin Calcium [Lipitor] 80 mg PO HS 06/15/19 [History] Omeprazole [PriLOSEC] 20 mg PO QAM 06/15/19 [History] amLODIPine BESYLATE/BENAZEPRIL [Lotrel 10-40 MG] 1 cap PO QAM 06/15/19 [History] Ezetimibe [Zetia] 10 mg PO HS 04/01/20 [History] Tamsulosin HCl [Flomax] 0.4 mg PO HS 04/01/20 [History] metFORMIN HCL [Glucophage] 500 mg PO BID 04/01/20 [History] Aspirin [Adult Low Dose Aspirin EC] 81 mg PO HS 05/07/22 [History] Triamterene/Hydrochlorothiazid [Triamterene-Hctz 37.5-25 mg Tb] 1 tab PO QAM 05/07/22 [History] Metoprolol Succinate (ER) [Toprol XL] 50 mg PO HS 03/17/24 [History] Aspirin 325 mg PO BID #60 tab 03/24/24 [Rx] HYDROcodone/APAP 7.5-325MG [[place] 7.5-325] 1 - 2 tab PO Q6H PRN #32 tab 03/24/24 [Rx] Sennosides [Senokot] 2 tab PO DAILY PRN #60 tablet 03/24/24 [Rx] Follow up Appointment(s)/Referral(s): Quinn Swartz DO [Doctor of Osteopathic Medicine] - 04/06/24 2:45 pm (With Do) [facility] Visiting Nurse, [NON-STAFF] - As Needed Activity/Diet/Wound Care/Special Instructions: Weightbearing as tolerated with a walker. CPM 5-6h daily as tolerated. Leave dressing intact. Dressing may be removed by home care nurse or by patient in 7 days. Then change dressing twice daily until follow up. May shower with initial dressing intact and after removal. If dressing become saturated, please remove. Recommend use of compression stockings daily until follow up to help prevent swelling and blood clots. May remove at night before sleeping. Please take aspirin 325mg twice daily for 30 days to prevent blood clots. Please follow up with [facility] and call with any questions or concerns, . Discharge Disposition: HOME WITH HOME HEALTH SERVICES
[2024-03-25] MEDS ORDERED: TAMSULOSIN 0.4 MG CAP.ER.24H PO SCH (21:00)
[2024-03-25] MEDS ORDERED: ATORVASTATIN 80 MG TAB PO SCH (21:00)
[2024-03-25] MEDS ORDERED: EZETIMIBE 10 MG TAB PO SCH (21:00)
[2024-03-25] MEDS ORDERED: METOPROLOL SUCCINATE (ER) 50 MG TAB.ER.24H PO SCH (21:00)
== END 2024-03-25 13:06 | disposition home health service (06) | DRG 468 ==
LOC: 2ORMAIN 12:42 → 4SSUR 18:01
PROVIDERS: ADMIT Orthopaedic Surgery; ATTEND Orthopaedic Surgery
PROC: 3E0T3BZ Introduction of Anesthetic Agent into Peripheral Nerves and Plexi, Percutaneous Approach (ICD-10-PCS; principal; 2024-03-24 15:20)
PROC: 0SRC0J9 Replacement of Right Knee Joint with Synthetic Substitute, Cemented, Open Approach (ICD-10-PCS; principal; 2024-03-24 15:20)
PROC: 0SPC0JZ Removal of Synthetic Substitute from Right Knee Joint, Open Approach (ICD-10-PCS; principal; 2024-03-24 15:20)
DX: T84.032A Mechanical loosening of internal right knee prosthetic joint, initial encounter (principal); I10 Essential (primary) hypertension; T84.84XA Pain due to internal orthopedic prosthetic devices, implants and grafts, initial encounter; E11.9 Type 2 diabetes mellitus without complications; Y79.2 Prosthetic and other implants, materials and accessory orthopedic devices associated with adverse incidents; M25.361 Other instability, right knee; Z90.49 Acquired absence of other specified parts of digestive tract
CPT/HCPCS: 64448; 64999; 85025; 87070; 87075; 87205; 94640; 94760

== ENCOUNTER → 2024-09-21 | Outpatient (CLI) | payer BC ==
[2024-09-21 15:40] LABS: HCT 45.8 % (39.6-50.0); HGB 14.8 g/dL (13.0-17.0); MCH 29.3 pg (27.0-32.0); MCHC 32.3 g/dL (32.0-37.0); MCV 90.7 FL (80.0-97.0); Mean Platelet Volume 10.4 FL (9.5-12.2); NRBC Per 100 WBC 0 X 10*3/uL (0.00-0.01); Platelet Count 245 X 10*3/uL (140-440); RBC 5.05 X 10*6/uL (4.40-5.60); RDW 13.8 % (11.5-14.5); WBC 6.76 X 10*3/uL (4.50-10.00)
[2024-09-21 15:56] LABS: Blood Urea Nitrogen 14.4 mg/dL (9.0-27.0); Carbon Dioxide 24.9 mmol/L (21.6-31.8); Chloride 102 mmol/L (96-109); Potassium 4.9 mmol/L (3.5-5.5); Sodium 136 mmol/L (135-145)
== END | disposition home or self-care (01) ==
LOC: LABPAT 08:24
PROVIDERS: ATTEND Internal Medicine Clinical Cardiac Electrophysiology
DX: Z01.812 Encounter for preprocedural laboratory examination (principal); I47.10 Supraventricular tachycardia, unspecified
CPT/HCPCS: 80051; 82565; 84520; 85027

== ENCOUNTER 2024-09-29 05:49 | Day surgery (SDC) | payer BC ==
[2024-09-24 14:46] VITALS: BMI 29.8
[2024-09-29 06:31] LABS: Glucose,Whole Blood 132 mg/dL (70-110)
[2024-09-29] MEDS: SODIUM CHLORIDE 0.9% 1,000 ML IV SCH (06:37)
[2024-09-29] MEDS: IV FLUID CONTINUATION 1,000 ML IV ONE ×2 (06:37→13:48)
[2024-09-29 07:00] VITALS: RESP 14; TEMP 97.9
[2024-09-29] MEDS ORDERED: fentaNYL (PF) 50 MCG/ML 2 ML AMP ONE (07:15)
[2024-09-29] MEDS ORDERED: MIDAZOLAM 2 MG/2 ML VIAL ONE (07:15)
[2024-09-29] MEDS ORDERED: diphenhydrAMINE 50 MG/ML 1 ML VIAL ONE (07:15)
[2024-09-29] MEDS ORDERED: ONDANSETRON 4 MG/2 ML VIAL ONE (07:15)
[2024-09-29] MEDS ORDERED: PROPOFOL 10 MG/ML 20 ML VIAL IV ONE (07:15)
[2024-09-29] MEDS ORDERED: DEXAMETHASONE SOD PHOSPHATE 4 MG/ML 1 ML VIAL ONE (07:15)
[2024-09-29] MEDS ORDERED: ISOPROTERENOL 250 MCG/1.25 ML SYR IV ONE (07:15)
[2024-09-29] MEDS: LIDOCAINE 1% INJ 10MG/ML (20 ML MDV) SQ ONE ×3 (07:59→13:50)
--- NOTE | 2024-09-29 08:44 | P.HPCAR ---
History of Present Illness This is Dr. Mcrae dictating an H/P on this patient The patient was interviewed and examined IMPRESSION / ASSESSMENT: Symptomatic SVT greater than 160 beats minute Unresponsive to right followed by left carotid sinus massage and 12 mg of adenosine Terminated with IV verapamil 10 mg, abrupt onset Right bundle branch block at baseline Hypertension Known coronary artery disease Type 2 diabetes Dyslipidemia Status post RCA stenting in 2021 PLAN: Patient has had a diagnostic EP study in the past but we were not able to induce any SVT Proceed with EP study and possible ablation. Patient has held metoprolol and verapamil for the last several days HPI Patient presents to the office previously with sudden onset of SVT. This was unresponsive to carotid sinus massage and IV adenosine but responded with abrupt termination to 10 mg of IV adenosine He has had recurrent palpitations in the past and he has had an EP study but he was noninducible for any arrhythmias. Therefore no ablation could be performed previously He denies any fever chills cough expectoration ROS: No fever chills or rigors, no cough, phlegm or expectoration, no nausea, vomiting or diarrhea, no hematuria, dysuria, no musculoskeletal complaints, no strokes or seizures, no skin lesions. EXAMINATION: 72 beats a minute blood pressure 132/84 mmHg afebrile Breath sounds are clear no rhonchi or crackles Heart sounds S1-S2 normal no murmurs or gallops or rub Extremities are warm no edema REVIEW OF LABS, ECG & MEDICAL DATA Normal TSH 2.6 Physical Exam Vitals: Vital Signs Temp Pulse Resp BP Pulse Ox 09/29/24 06:58 97.9 F 72 14 132/84 97 Intake and Output 09/28/24 09/29/24 09/29/24 22:59 06:59 14:59 Intake Total 200 0 Balance 200 0 Intake: IV 200 0 Other: Weight 98.7 kg Past Medical History Past Medical History: Diabetes Mellitus, GERD/Reflux, Hyperlipidemia, Hypertension, Myocardial Infarction (VT), Osteoarthritis (OA), Prostate Disorder Additional Past Medical History / Comment(s): BPH, Last Myocardial Infarction Date:: 01/27/19 History of Any Multi-Drug Resistant Organisms: None Reported Past Surgical History: Cholecystectomy, Heart Catheterization With Stent, Joint Replacement Additional Past Surgical History / Comment(s): yadira knee replacement Past Anesthesia/Blood Transfusion Reactions: Postoperative Nausea & Vomiting (PONV) Additional Past Anesthesia/Blood Transfusion Reaction / Comment(s): no hx blood transfusion Date of Last Stent Placement:: 01/27/19 Smoking Status: Never smoker - Past Family History Mother Family Medical History: Cancer Father Family Medical History: Cancer Additional Family Medical History / Comment(s): Stomach cancer. Physical Examination Vital Signs Temp Pulse Resp BP Pulse Ox 09/29/24 06:58 97.9 F 72 14 132/84 97 Intake and Output 09/28/24 09/29/24 09/29/24 22:59 06:59 14:59 Intake Total 200 0 Balance 200 0 Intake: IV 200 0 Other: Weight 98.7 kg Results Current Medications Generic Name Dose Route Start Last Admin Trade Name Freq PRN Reason Stop Dose Admin Sodium Chloride 1,000 mls @ 20 mls/hr 09/29/24 06:04 09/29/24 06:37 Saline 0.9% IV 10/29/24 06:03 20 mls/hr .Q24H CHERELLE Administration Intake and Output 09/28/24 09/29/24 09/29/24 22:59 06:59 14:59 Intake Total 200 0 Balance 200 0 Intake: IV 200 0 Other: Weight 98.7 kg
--- NOTE | 2024-09-29 10:12 | P.EPPROC ---
- EP Procedure Note Electrophysiology Procedure Note: Diagnosis Recurrent palpitations Documented SVT that was unresponsive to right carotid sinus massage, left carotid sinus massage, 12 mg of IV adenosine Abrupt termination with 10 mg of IV verapamil Hypertension, coronary artery disease, coronary stenting, type 2 diabetes Final diagnosis Brief induction of SVT, likely atrial tachycardia with catheter manipulation in the right atrium with spontaneous termination Inducible A-fib but organizes 2-1 atrial tachycardia, briefly as well as atrial flutter briefly but repeatedly disorganize into atrial fibrillation Easily inducible atrial fibrillation on Isopril Nonsustained episodes of atrial fibrillation induced with baseline EP study Atrial tachycardia could not be induced at EP study Plan Stop Lotrel Stop metoprolol Stop short acting verapamil Start long-acting verapamil starting 820 mg p.o. daily Switch to valsartan 320 mg p.o. daily Continue Maxide Continue other cardiac medications Consider PVI followed by EP study and ablation for any residual atrial tachycardia particularly in the right atrium, if he continues to have break through episodes of palpitations Continue implantation of a loop monitor to assist in management Details Patient was brought to the EP lab in the fasting state. Written informed consent was obtained prior to the procedure. Venous sheaths were placed in the right left femoral veins Catheters were placed in the high right atrium, His bundle area, coronary sinus and right ventricle Baseline measurements were: Sinus cycle length of 890 ms, NE interval of 133 ms, QRS 138 and QT 429 ms AH 73 ms and HV interval 33 ms Sinus node recovery times were 1241, 1102 and 965 ms. Corresponding corrected s inus node recovery x 1 within normal limits Para-Hisian pacing revealed a daniel response No evidence for antegrade or retrograde accessory pathway conduction No evidence for slow pathway conduction AV node Wenckebach block 340 ms Atrial extra stimulation was performed from the high right atrium and the coronary sinus VA Wenckebach block 340 ms Inducible atrial fibrillation from the coronary sinus stimulation with double extrastimuli at 400/210/210 ms. This was a brief burst of atrial fibrillation with organized into atrial flutter and then spontaneously terminated in less than 30 to 60 seconds High-dose Isopril was infused. EP testing performed on 2 mics of Isopril AV node Wenckebach block 250 ms No evidence for slow pathway conduction or accessory pathway conduction With straight pacing at 490 ms from the coronary sinus, atrial fibrillation was induced once again Isopril was stopped Atrial fibrillation did not terminate on its own Successful electrical cardioversion to sinus rhythm was performed All catheters were removed Venous puncture sites were closed with closure devices successfully. Hemostasis was assured
--- NOTE | 2024-09-29 10:14 | P.PRLE ---
RE: Greg Freire Dear Haris Garza underwent a diagnostic EP study for SVT. We could only induce atrial fibrillation There was no evidence for AV daniel reentry or an accessory pathway conduction. His most likely diagnosis is atrial tachycardia if you were not able to induce it. Instead atrial fibrillation was repeatedly induced Initial diagnosis Recurrent palpitations Documented SVT that was unresponsive to right carotid sinus massage, left carotid sinus massage, 12 mg of IV adenosine Abrupt termination with 10 mg of IV verapamil Hypertension, coronary artery disease, coronary stenting, type 2 diabetes Final diagnosis Brief induction of SVT, likely atrial tachycardia with catheter manipulation in the right atrium with spontaneous termination Inducible A-fib but organizes 2-1 atrial tachycardia, briefly as well as atrial flutter briefly but repeatedly disorganize into atrial fibrillation Easily inducible atrial fibrillation on Isopril Nonsustained episodes of atrial fibrillation induced with baseline EP study Atrial tachycardia could not be induced at EP study Plan Stop Lotrel Stop metoprolol Stop short acting verapamil Start long-acting verapamil starting 820 mg p.o. daily Switch to valsartan 320 mg p.o. daily Continue Maxide Continue other cardiac medications Consider PVI followed by EP study and ablation for any residual atrial tachycardia particularly in the right atrium, if he continues to have breakthrough episodes of palpitations Continue implantation of a loop monitor to assist in management Thank you for entrusting me with the care of the patient Warm regards Sincerely Saúl Mcrae
--- NOTE | 2024-09-29 10:37 | P.PN ---
Progress Note - Text Detailed discussion with the patient and his regarding further management I would recommend long-acting verapamil along with valsartan I would also recommend implantation of a loop monitor so that we can diagnose whether he continues to have atrial tachycardia, atrial fibrillation or neither Once he starts having breakthrough episodes on medical treatment we will proceed with an A-fib ablation with PVI first followed by an attempt at induction of any extra PV- atrial tachycardias Following that we will be able to monitor procedure efficacy via loop monitor implant Primary physicians: Qa Test Lead: Indication: Patient was brought to the EP lab in a fasting state. Written informed consent was obtained prior to the procedure. The left pectoral area was prepped and draped per protocol. Intravenous antibiotic was administered preoperatively. A subcutaneous Loop monitor was implanted successfully and the wound was closed per protocol. The device was programmed to detect significant norman- arrhythmic and tachy-arrhythmic events, per protocol. Device and programming details: The patient and his are both agreeable with the plan Will proceed with implantation of loop monitor later today prior to discharge
[2024-09-29] MEDS: ceFAZolin 2 GM in DEXTROSE 5% IN WATER 50 ML IVPB ONE (13:49)
--- NOTE | 2024-09-29 14:12 | P.EPPROC ---
- EP Procedure Note Electrophysiology Procedure Note: Loop monitor implant, Joiner Primary physicians: Vehicle Technician: Dr. Mcrae Indication: Atrial tachycardia, PAF Patient was brought to the EP lab in a fasting state. Written informed consent was obtained prior to the procedure. The left pectoral area was prepped and draped per protocol. Intravenous antibiotic was administered preoperatively. A subcutaneous Loop monitor was implanted successfully and the wound was closed per protocol. The device was programmed to detect significant norman- arrhythmic and tachy-arrhythmic events, per protocol. Device and programming details: AF detection/atrial tachycardia detection
[2024-09-29] MEDS: ACETAMINOPHEN TAB 500 MG TAB PO STA (15:49)
[2024-09-29 17:17] VITALS: BP 130/83; PULSE 102
== END 2024-09-29 16:08 | disposition home or self-care (01) ==
LOC: CATHEP 05:49
PROVIDERS: ATTEND Internal Medicine Clinical Cardiac Electrophysiology
DX: I47.19 Other supraventricular tachycardia (principal); I48.0 Paroxysmal atrial fibrillation; I48.92 Unspecified atrial flutter; I10 Essential (primary) hypertension; I25.10 Atherosclerotic heart disease of native coronary artery without angina pectoris; I25.2 Old myocardial infarction; Z95.5 Presence of coronary angioplasty implant and graft; E11.9 Type 2 diabetes mellitus without complications; E78.5 Hyperlipidemia, unspecified; I44.1 Atrioventricular block, second degree; I45.10 Unspecified right bundle-branch block; N40.0 Benign prostatic hyperplasia without lower urinary tract symptoms; K21.9 Gastro-esophageal reflux disease without esophagitis; R00.2 Palpitations; Z91.89 Other specified personal risk factors, not elsewhere classified; Z79.82 Long term (current) use of aspirin; Z79.84 Long term (current) use of oral hypoglycemic drugs; Z79.899 Other long term (current) drug therapy; Z82.49 Family history of ischemic heart disease and other diseases of the circulatory system
CPT/HCPCS: 92960; 93623; 93621; 93620; 33285; 86900; 86901; 84443; 86850; C1894; C1769; C1760 ×2; C1730 ×3; C1764; J2250; J1200; J1100; J0690; J2405; J2003; J3010; J2704